=== PATIENT | female | born 1940 | race Caucasian/White ===

== ENCOUNTER 2018-05-13 18:08 | Observation (INO) ==
--- NOTE | 2018-05-13 19:03 | Emergency Department Note ---
Disposition Clinical Impression: UTI (urinary tract infection) Qualifiers: Urinary tract infection type: acute cystitis Hematuria presence: without hematuria Qualified Code(s): N30.00 - Acute cystitis without hematuria Disposition: Admitted As Inpatient Condition: Good Referrals: Jaz Dominguez MD [Primary Care Provider] - Forms: Work/School Release, ED Satisfaction Letter Time of Disposition: 23:07 General Adult HPI - General Chief complaint: ED Altered Mental Status Stated complaint: needs medicines Time Seen by Provider: 05/13/18 18:48 Source: patient, family Mode of arrival: wheelchair Limitations: no limitations Nursing Notes Reviewed: Yes Vital Signs Reviewed: Yes - History of Present Illness HPI Narrative: She is 78 year old woman with pmh significant for dementia, parkinson's, DM who was found outside alone at the [facility] entrance today attempting to take her medicine that was in a pravastatin bottle but had mixed tablets in the bottle. Staff said she appeared confused and was brought to the ED. Her son who is at bedside now states she has been here visiting another son who is a pt here. She arrived with her who left her outside when she did not want to visit her son today. She became upset, anxious, and worried prior to staff finding her. In the ED she has been moaning, anxious, and crying. Her son states she has not taken her meds for a number of days and has had similar episodes like this before when she does not take her meds and gets worried about things. Pt Subjective Complaint: worried Onset (ago): hour(s) Pain Scale: 6 Associated symptoms: Reports: denies other symptoms Treatments Prior to Arrival: none - Related Data Home Medications Medication Instructions Recorded Confirmed Amlodipine Besylate 10 mg PO DAILY 05/13/18 05/13/18 Carbidopa/Levodopa 0.5 tab PO TID 05/13/18 05/13/18 [Carbidopa-Levodopa 25-250 Tab] Citalopram [CeleXA] 20 mg PO DAILY 05/13/18 05/13/18 Furosemide [Lasix] 20 mg PO DAILY 05/13/18 05/13/18 Gabapentin [Neurontin] 300 mg PO BID 05/13/18 05/13/18 Gabapentin [Neurontin] 600 mg PO HS 05/13/18 05/13/18 Glimepiride [Amaryl] 2 mg PO DAILY 05/13/18 05/13/18 Metformin HCl [Metformin HCl] 1,000 mg PO QAM 05/13/18 05/13/18 Metformin HCl [Metformin HCl] 1,500 mg PO HS 05/13/18 05/13/18 Omeprazole [PriLOSEC] 40 mg PO DAILY 05/13/18 05/13/18 Pravastatin Sodium [Pravachol] 40 mg PO HS 05/13/18 05/13/18 Propranolol HCl 60 mg PO DAILY 05/13/18 05/13/18 Tolterodine Tartrate [Tolterodine 4 mg PO DAILY 05/13/18 05/13/18 Tartrate ER] Trazodone HCl 200 mg PO HS 05/13/18 05/13/18 rOPINIRole [Requip] 0.5 mg PO HS 05/13/18 05/13/18 raNITIdine HCl [Zantac] 150 mg PO BID 05/13/18 05/13/18 Allergies Allergy/AdvReac Type Severity Reaction Status Date / Time No Known Allergies Allergy Verified 05/13/18 18:18 All systems ED: reviewed and negative except as stated. Past Medical History - Past Medical History Medical history: Reports: dementia, diabetes Psychiatric history: Reports: other - Social History Smoking Status: Never smoker Smokeless Tobacco Status: No Alcohol use: Reports: none Drug use: Reports: none Physical Exam - General Limitations: other (dementia ) General appearance: alert, anxious, other (tearful, moaning when not being directly spoken to. ) - Head Head exam: atraumatic, normocephalic, normal inspection - Eye Eye exam: Present: normal appearance - ENT ENT exam: mucous membranes moist - Neck Neck exam: Present: normal inspection, trachea midline - Chest Chest inspection: Present: normal inspection, symmetric chest wall rise - Respiratory Respiratory exam: Present: normal lung sounds bilaterally - Cardiovascular Cardiovascular exam: Present: normal rhythm, tachycardia, normal heart sounds, + S1, +S2 - Abdominal Exam Abdominal exam: Present: soft, Non-Tender - Neurological Exam Neurological exam: Present: alert, other (oriented to self but not place, time) - Psychiatric Psychiatric exam: Present: anxious, other (worried, tearful ) - Skin Skin exam: Present: warm, dry, intact, normal color Course Course Narrative: She was found by staff alone attempting to take mixed medications outside of the [facility] entrance earlier today. Son at bedside said she has not taken her medications for a number of days and this has happened before when she gets worried about something and doesn't take her meds. Son also states since his arrival in the room she has improved. He does not know what medications she takes and she does not have a current medication list. She continues to be tearful, anxious and worried when I examined her but has no complaints herself. Will get bmp and UA and give low dose risperidone and lorazepam to calm her down. 2149: She is more calm now. UA with large esterase, 50-100 wbc, large bacteria consistent with UTI. Will give ceftriaxone now and likely admit her in the setting of UTI with acute confusion. 2299: Spoke to hospitalist service who accepted. Vital Signs Temperature 97.7 F 05/13/18 18:18 Pulse Rate 106 05/13/18 18:18 Respiratory Rate 24 05/13/18 18:18 Blood Pressure 173/84 05/13/18 18:18 O2 Sat by Pulse Oximetry 99 05/13/18 18:18 Temperature 97.7 F 05/13/18 18:44 Pulse Rate 99 05/13/18 22:55 Respiratory Rate 12 05/13/18 22:55 Blood Pressure 154/74 05/13/18 22:55 O2 Sat by Pulse Oximetry 94 05/13/18 22:55 Oxygen Delivery Oxygen Delivery Room Air Medical Decision Making - Lab Data Result diagrams: 05/13/18 20:18 Lab Results 05/13/18 05/13/18 Range/Units 20:18 21:19 Sodium 138 (136-145) mEq/L Potassium 4.0 (3.5-5.1) mEq/L Chloride 103 (98-107) mEq/L Carbon Dioxide 19 L (23-29) mEq/L BUN 18 (8-23) mg/dL Creatinine 0.56 L (0.60-1.20) mg/dL Est GFR ( Amer) > 60 (> 60) Est GFR (Non-Af Amer) > 60 (> 60) BUN/Creatinine Ratio 32 H (6-26) Glucose 167 H (70-105) mg/dL Calculated Osmolality 292 (280-300) Calcium 9.9 (8.6-10.3) mg/dL Urine Color Yellow (Yellow) Urine Clarity Cloudy A (Clear) Urine pH 7.0 (5.0-8.0) pH Units Ur Specific [place] 1.007 L (1.010-1.025) Urine Protein Negative (Neg-Trace) mg/dL Urine Glucose (UA) Normal (Normal) mg/dL Urine Ketones Negative (Negative) mg/dL Urine Blood Negative (Negative) Urine Nitrite Negative (Negative) Urine Bilirubin Negative (Negative) Urine Urobilinogen Normal (Normal) mg/dL Ur Leukocyte Esterase Large H (Negative) Urine Microscopic RBC 0-3 (0-3) per hpf Urine Microscopic WBC 50-100 H (0-3) per hpf Ur Squamous Epith Cells Moderate H (None-Few) per lpf Urine Bacteria Many H (None-Few) per hpf Hyaline Casts None Seen (None-Few) per lpf
[2018-05-13] MEDS ORDERED: *HR* LORazepam 1 MG TABLET PO ONE (19:53)
[2018-05-13] MEDS ORDERED: risperiDONE 1 MG TABLET PO ONE (19:53)
[2018-05-13 21:30] LABS: Bilirubin,Urine Negative (Negative); Blood,Urine Negative (Negative); Clarity,Urine Cloudy (Clear); Color,Urine Yellow (Yellow); Glucose,Urine (UA) Normal (Normal); Ketones,Urine Negative (Negative); Leukocyte Esterase,Urine Large (Negative); Nitrite,Urine Negative (Negative); Protein,Urine Negative (Neg-Trace); Specific Gravity,Urine 1.007 (1.010-1.025); Urobilinogen,Urine Normal (Normal)
[2018-05-13 21:31] LABS: Bacteria,Urine Many per hpf (None-Few); Hyaline Casts,Urine None Seen per lpf (None-Few); RBC,Urine 0-3 per hpf (0-3); Squamous Epithelial Cell,Urine Moderate per lpf (None-Few); WBC,Urine 50-100 per hpf (0-3)
[2018-05-13] MEDS ORDERED: cefTRIAXone 1,000 MG in Water for inj. (sterile) 20 ML 10 ML IVP ONE (21:55)
[2018-05-13 22:19] LABS: BUN/Creatinine Ratio 32 (6-26); Blood Urea Nitrogen 18 mg/dL (8-23); Calcium 9.9 mg/dL (8.6-10.3); Carbon Dioxide 19 mEq/L (23-29); Chloride 103 mEq/L (98-107); Glucose 167 mg/dL (70-105); Osmolality,Calculated 292 (280-300); Sodium 138 mEq/L (136-145); eGFR For Non-African Americans > 60 (> 60)
[2018-05-14] MEDS ORDERED: Dextrose Gel 15 GM/37.5 ML TUBE PO PRN ×2 (00:38)
[2018-05-14] MEDS ORDERED: Ringers Solution, Lactated 1,000 ML IVC SCH (00:45)
--- NOTE | 2018-05-14 01:15 | Internal Med History&Physical ---
Date of Encounter: 05/14/18 Time of Encounter: 01:10 Internal Medicine - H&P: HPI Chief complaint: confusion Admitted From: Home Plans for Post Hospital Care: Home History of present illness: Bulk of history obtained from chart review as patient is not overly conversant. She is a 78-year-old woman with a reported history of dementia and Parkinsons disease as well as diabetes who was found outside our hospital earlier today apparently attempting to take her medicine that was in a pravastatin bottle but had mixed tablets in the bottle. It is reported by staff members that she appeared confused and was brought into the ER. Her son who was seen at bedside earlier as per ED physician report states that she was visiting another son who is admitted as a as an inpatient here but upon arrival she did not want to come in and she was left by her outside. She then became upset, anxious and worried prior to staff finding her. In the ER she was apparently moaning and crying and somewhat anxious. As per her son he stated that she had not taken her medications for a number of days and she has had similar episodes prior when she does not takes her medications. She was found clinically and hemodynamically stable. ER documentations that she was tearful, anxious and worried but had no specific complaints. She was given risperidone and lorazepam to calm her down. A UA was obtained which was positive and was started on ceftriaxone with a concern that she may have had an acute confusional state precipitated by UTI. On my assessment she was lying in bed comfortably in no acute distress. When I asked her name she failed to respond until asked about 6 times. When asked about any specific complaints or concerns she says no although she appears somewhat depressed. She denies abdominal pain and dysuria. She denies any headache, fever and chills. She denies chest pain, nausea, vomiting and diarrhea. Past Med Surg Social Fam HX - Past Medical History Medical history: dementia, diabetes Additional medical history: Parkinson's Psychiatric history: depression, other - Past Surgical History Surgical History: non-contributory - Social History Smoking Status: Never smoker Smokeless Tobacco Status: No Alcohol use: none Drug use: none - Family History Son Hx Family Psychosocial Disorders: Yes (Substance abuse) Internal Medicine - H&P: Meds Amlodipine Besylate 10 mg PO DAILY 05/13/18 [History] Carbidopa/Levodopa [Carbidopa-Levodopa 25-250 Tab] 0.5 tab PO TID 05/13/18 [ History] Citalopram [CeleXA] 20 mg PO DAILY 05/13/18 [History] Furosemide [Lasix] 20 mg PO DAILY 05/13/18 [History] Gabapentin [Neurontin] 300 mg PO BID 05/13/18 [History] Gabapentin [Neurontin] 600 mg PO HS 05/13/18 [History] Glimepiride [Amaryl] 2 mg PO DAILY 05/13/18 [History] Metformin HCl [Metformin HCl] 1,000 mg PO QAM 05/13/18 [History] Metformin HCl [Metformin HCl] 1,500 mg PO HS 05/13/18 [History] Omeprazole [PriLOSEC] 40 mg PO DAILY 05/13/18 [History] Pravastatin Sodium [Pravachol] 40 mg PO HS 05/13/18 [History] Propranolol HCl 60 mg PO DAILY 05/13/18 [History] Tolterodine Tartrate [Tolterodine Tartrate ER] 4 mg PO DAILY 05/13/18 [History] Trazodone HCl 200 mg PO HS 05/13/18 [History] rOPINIRole [Requip] 0.5 mg PO HS 05/13/18 [History] raNITIdine HCl [Zantac] 150 mg PO BID 05/13/18 [History] 3 Allergy/AdvReac Type Severity Reaction Status Date / Time No Known Allergies Allergy Verified 05/13/18 18:18 All Systems PM: A 10-system review of systems was performed and is negative for pertinent findings except as documented above in the HPI. - Constitutional Vitals: Temp Pulse Resp BP Pulse Ox 98.3 F 100 16 146/86 92 05/14/18 00:19 05/14/18 00:19 05/14/18 00:19 05/14/18 00:19 05/14/18 00:19 Exam: Vitals: Reviewed General: Well-developed. NAD. Skin: Warm and supple. HEENT: Moist mucous membranes. Mild conjunctivae pallor. Neck: No lymphadenopathy. No JVD. No carotid bruits. No palpable thyroid. Chest: Normal thoracic expansion. Normal breath sounds. Clear to auscultation. Heart: Normal S1 & S2; rhythmic. No rubs or murmurs. Abdomen: Non-distended, soft and non-tender to palpation. Extremities: No clubbing, cyanosis or edema. No calf tenderness. Normal distal pulses. Neurological: No focal deficits apparent. Psych: Flat affect and depressed facial expression. Internal Med - H&P Results - Labs CBC & Chem 7: 05/13/18 20:18 - Assessment and plan (1) Cystitis Current Visit: Yes Status: Acute Assessment and plan: The patient has a positive UA with minimal systemic signs/symptoms of infection. Will get a urine culture and continue ceftriaxone. She can be transitioned to PO to complete a 3 day empiric course. (2) Confusion and disorientation Current Visit: Yes Status: Acute Assessment and plan: May be triggered by lower UTI however we do not know what her baseline is and how episodic this presentation occurs. Will need family to present at bedside for better understanding and if she needs some assistance at home. Will consult SW. (3) Parkinson disease Current Visit: Yes Status: Acute Assessment and plan: dopamine agents to be resumed. (4) Diabetes Current Visit: Yes Status: Chronic Assessment and plan: Will place on ISS and diabetic diet for now. Qualifiers: Diabetes mellitus type: type 2 Diabetes mellitus assisted insulin use: without intermodal owner operator truck driver use Diabetes mellitus complication status: without complication Qualified Code(s): E11.9 - Type 2 diabetes mellitus without complications (5) DVT prophylaxis Current Visit: Yes Status: Acute Assessment and plan: SubQ heparin. - Time Spent With Patient Total time spent is greater than 50% in coordination of care (as documented) at patient's floor/unit and/or counseling patient: Greater than 35 minutes
[2018-05-14 01:18] LABS: Basophils % 0.3 %; Eosinophils # 0.1 K/mcL (0.0-0.6); Eosinophils % 0.6 %; Hematocrit 38.6 % (35.3-44.9); Hemoglobin 12.2 g/dL (11.5-15.4); Immature Granulocytes % 0.1 % (0-4); Lymphocytes # 3.1 K/mcL (0.6-4.6); Lymphocytes % 40.8 %; Mean Corpuscular HGB Conc 31.6 g/dL (31.6-35.5); Mean Corpuscular Hemoglobin 28.6 pg (28.0-33.3); Mean Corpuscular Volume 90.6 fL (83.0-100.0); Mean Platelet Volume 9.9 fL (9.4-12.4); Monocytes # 0.6 K/mcL (0.0-1.3); Monocytes % 7.3 %; Neutrophils # 3.9 K/mcL (1.6-8.9); Platelet Count 232 K/mcL (140-400); Red Blood Count 4.26 M/mcL (3.82-4.97); Red Cell Distribution Width 15.5 % (11.5-14.5); Segmented Neutrophils % 50.9 %
[2018-05-14 01:36] LABS: Alanine Aminotransferase 14 Units/L (7-52); Albumin 4.2 g/dL (3.5-5.7); Albumin/Globulin Ratio 1.3 (1.1-2.2); Alkaline Phosphatase 72 Units/L (34-104); Aspartate Amino Transferase 16 Units/L (13-39); BUN/Creatinine Ratio 32 (6-26); Bilirubin,Total 0.3 mg/dL (0.3-1.0); Blood Urea Nitrogen 15 mg/dL (8-23); Calcium 9.9 mg/dL (8.6-10.3); Carbon Dioxide 25 mEq/L (23-29); Chloride 103 mEq/L (98-107); Globulin 3.2 g/dL (2.4-3.5); Glucose 178 mg/dL (70-105); Osmolality,Calculated 291 (280-300); Potassium 3.7 mEq/L (3.5-5.1); Sodium 138 mEq/L (136-145); Total Protein 7.4 g/dL (6.4-8.9); eGFR For Non-African Americans > 60 (> 60)
[2018-05-14] MEDS: traZODone 50 MG TABLET PO SCH ×2 (03:58→21:32)
[2018-05-14] MEDS: Insulin LISPRO 300 UNITS/3 ML VIAL SQ SCH ×5 (04:07→21:38)
[2018-05-14] MEDS: *HR* Heparin 5,000 UNIT/ML VIAL SQ SCH ×3 (06:25→21:33)
[2018-05-14] MEDS: Carbidopa/Levodopa 25/250 TABLET PO SCH ×3 (08:09→21:33)
[2018-05-14] MEDS: cefTRIAXone 1,000 MG in Water for inj. (sterile) 20 ML 10 ML IVPB SCH (08:10)
[2018-05-14] MEDS: Famotidine 20 MG TABLET PO SCH ×2 (08:10→17:38)
[2018-05-14] MEDS: Tolterodine LA (24 HR) 4 MG CAP.ER.24H PO SCH (08:10)
[2018-05-14] MEDS: amLODIPine 5 MG TABLET PO SCH (08:10)
[2018-05-14] MEDS: Gabapentin 300 MG CAPSULE PO SCH ×3 (08:10→21:33)
[2018-05-14] MEDS: Propranolol LA (24 HR) 60 MG CAP.SA.24H PO SCH (12:20)
[2018-05-14] MEDS ORDERED: *HR* LORazepam 2 MG/ML VIAL IVP ONE (20:25)
[2018-05-14] MEDS: rOPINIRole 0.25 MG TABLET PO SCH (21:32)
[2018-05-15] MEDS: *HR* Heparin 5,000 UNIT/ML VIAL SQ SCH ×3 (05:24→20:40)
[2018-05-15] MEDS: Gabapentin 300 MG CAPSULE PO SCH ×4 (08:44→20:41)
[2018-05-15] MEDS: Insulin LISPRO 300 UNITS/3 ML VIAL SQ SCH ×3 (08:54→18:32)
[2018-05-15] MEDS: cefTRIAXone 1,000 MG in Water for inj. (sterile) 20 ML 10 ML IVPB SCH (10:42)
[2018-05-15] MEDS: amLODIPine 5 MG TABLET PO SCH (10:43)
[2018-05-15] MEDS: Carbidopa/Levodopa 25/250 TABLET PO SCH ×3 (10:43→20:40)
[2018-05-15] MEDS: Tolterodine LA (24 HR) 4 MG CAP.ER.24H PO SCH (10:44)
[2018-05-15] MEDS: Propranolol LA (24 HR) 60 MG CAP.SA.24H PO SCH (10:44)
[2018-05-15] MEDS: Famotidine 20 MG TABLET PO SCH ×2 (10:44→15:18)
[2018-05-15] MEDS: rOPINIRole 0.25 MG TABLET PO SCH (20:40)
[2018-05-15] MEDS: traZODone 50 MG TABLET PO SCH (20:41)
--- NOTE | 2018-05-15 22:44 | Internal Med Progress Note ---
Hospitalist Progress Note - Encounter Date of Encounter: 05/15/18 Time of Encounter: 19:00 - Subjective Interval History: SUBJECTIVE: I found this patient less drowsy today. She was sleeping, when I came to her room. She was happy to talk to me. She knows her first name and last name. Otherwise, she is disoriented. She is not voicing any particular problems. She has no problems with eating/drinking fluids. She has not started any ambulation yet. OBJECTIVE: Skin: Free of rash and discoloration. ENMT: Oral/pharyngeal mucosa is normal in appearance. Eyes: Sclera is white. There is no discharge from eyes. Respiratory: Normal breath sounds; no crackles or wheezes. CV: Heart is regular; no gallop or murmur. GI: Abdomen is soft and not tender. There is no palpable mass or visceromegaly. Neuro: There is no focal deficits. ASSESSMENT AND PLAN: Cystitis. It could be because of her confusion and disorientation. Obviously, she has underlying dementia/Parkinson's disease. We will continue IV Rocephin. We will continue previous treatments for Parkinson's disease. They include Sinemet and Requip. Type 2 diabetes mellitus. Under fair control. We will continue when necessary Humalog. Hypertension. Under control. We will continue amlodipine. DISPOSITION: I will start physical therapy for her. If she is doing okay with ambulation then, we may consider sending her back (home or ECF). - Exam Vitals: Temp Pulse Resp BP Pulse Ox 97.6 F 83 16 123/80 96 05/15/18 20:32 05/15/18 20:32 05/15/18 20:32 05/15/18 20:32 05/15/18 20:32 Exam: xx - Assessment and Plan (1) Cystitis Current Visit: Yes Status: Acute (2) Confusion and disorientation Current Visit: Yes Status: Acute (3) Parkinson disease Current Visit: Yes Status: Acute (4) Diabetes Current Visit: Yes Status: Chronic (5) HTN (hypertension) Current Visit: Yes Status: Acute - Time Spent with Patient Total time spent is greater than 50% in coordination of care (as documented) at patient's floor/unit and/or counseling patient: 25 - 35 minutes Plan of Care Discussed with: patient Internal Medicine: Result - Labs CBC & Chem 7: 05/14/18 01:03 05/14/18 01:03 Consult Discharge Plan - Plan Referrals: Jaz Dominguez MD [Primary Care Provider] - (4) Diabetes Qualifiers: Diabetes mellitus type: type 2 Diabetes mellitus retirement insulin use: without retirement use Diabetes mellitus complication status: without complication Qualified Code(s): E11.9 - Type 2 diabetes mellitus without complications (5) HTN (hypertension) Qualifiers: Hypertension type: essential hypertension Qualified Code(s): I10 - Essential (primary) hypertension
[2018-05-16] MEDS: Insulin LISPRO 300 UNITS/3 ML VIAL SQ SCH ×4 (06:59→16:31)
[2018-05-16] MEDS: *HR* Heparin 5,000 UNIT/ML VIAL SQ SCH ×2 (07:00→16:31)
[2018-05-16] MEDS: Famotidine 20 MG TABLET PO SCH ×2 (07:01→17:48)
[2018-05-16] MEDS: Propranolol LA (24 HR) 60 MG CAP.SA.24H PO SCH (08:29)
[2018-05-16] MEDS: Gabapentin 300 MG CAPSULE PO SCH ×2 (08:30→13:08)
[2018-05-16] MEDS: Tolterodine LA (24 HR) 4 MG CAP.ER.24H PO SCH (08:30)
[2018-05-16] MEDS: Carbidopa/Levodopa 25/250 TABLET PO SCH ×2 (08:31→17:48)
[2018-05-16] MEDS: cefTRIAXone 1,000 MG in Water for inj. (sterile) 20 ML 10 ML IVPB SCH (08:31)
[2018-05-16] MEDS: amLODIPine 5 MG TABLET PO SCH (08:31)
[2018-05-16 11:49] VITALS: BP 158/80
--- NOTE | 2018-05-16 14:53 | Discharge Summary ---
Orders not resulted at time of discharge: Pending orders 05/14/18 01:03 Culture,Blood [BC] Stat Date of Encounter: 05/16/18 Time of Encounter: 14:45 - Discharge Diagnosis (1) Cystitis Priority: Primary Status: Acute (2) Confusion and disorientation Priority: Primary Status: Resolved (3) Parkinson disease Priority: Secondary Status: Chronic (4) Diabetes Priority: Secondary Status: Chronic Qualifiers: Diabetes mellitus type: type 2 Diabetes mellitus detention insulin use: without restaurant hostess use Diabetes mellitus complication status: without complication Qualified Code(s): E11.9 - Type 2 diabetes mellitus without complications (5) HTN (hypertension) Priority: Secondary Status: Chronic Qualifiers: Hypertension type: essential hypertension Qualified Code(s): I10 - Essential (primary) hypertension Hospital course: HOSPITAL COURSE: This 78-year-old woman has had underlying mild/moderate dementia. We admitted her after she developed confusion. We found changes in urine suggesting diagnosis of urinary tract infection. Will put her on IV Rocephin and IV fluids. Her altered mental status subsided by the time of discharge. Her urine culture is growing Klebsiella. It is sensitive to ceftriaxone. CONDITION AT DISCHARGE: The patient feels good. She talked to her when I was in her room. Her feels that her mental status is baseline. The patient is able to ambulate on her own. Skin: Free of rash and discoloration. Respiratory: Normal breath sounds with no crackles and wheezes bilaterally. CV: Heart is regular with no gallop or murmur. GI: Abdomen is flat and soft with no palpable mass or visceromegaly. Neuro exam: There is no focal deficits. Normal speech, swallowing and gait. SEE DISCHARGE ORDERS/MEDICATIONS.. Discharge discussed with: patient, family, nurse - Time Spent with Patient Total time spent providing and/or coordinating discharge services: Greater than 30 minutes (40 minutes..) - Discharge Medications Prescriptions: Cefuroxime PO [Ceftin] 250 mg PO Q12HR 7 Days #14 tablet Home Medications: Amlodipine Besylate 10 mg PO DAILY 05/13/18 [History] Carbidopa/Levodopa [Carbidopa-Levodopa 25-250 Tab] 0.5 tab PO TID 05/13/18 [ History] Citalopram [CeleXA] 20 mg PO DAILY 05/13/18 [History] Furosemide [Lasix] 20 mg PO DAILY 05/13/18 [History] Gabapentin [Neurontin] 300 mg PO BID 05/13/18 [History] Gabapentin [Neurontin] 600 mg PO HS 05/13/18 [History] Glimepiride [Amaryl] 2 mg PO DAILY 05/13/18 [History] Metformin HCl 1,000 mg PO QAM 05/13/18 [History] Metformin HCl 1,500 mg PO HS 05/13/18 [History] Omeprazole [PriLOSEC] 40 mg PO DAILY 05/13/18 [History] Pravastatin Sodium [Pravachol] 40 mg PO HS 05/13/18 [History] Propranolol HCl 60 mg PO DAILY 05/13/18 [History] Tolterodine Tartrate [Tolterodine Tartrate ER] 4 mg PO DAILY 05/13/18 [History] Trazodone HCl 200 mg PO HS 05/13/18 [History] rOPINIRole [Requip] 0.5 mg PO HS 05/13/18 [History] raNITIdine HCl [Zantac] 150 mg PO BID 05/13/18 [History] Cefuroxime PO [Ceftin] 250 mg PO Q12HR 7 Days #14 tablet 05/16/18 [Rx] Allergies/Adverse Reactions: 3 Allergy/AdvReac Type Severity Reaction Status Date / Time No Known Allergies Allergy Verified 05/13/18 18:18 Date of admission: 05/13/18 23:38 Primary care physician: Jaz Dominguez MD Consults: 05/14/18 01:55 Consult to [employer] ([facility]) [CONS] Routine Reason For Exam: Reason for SW Consult: patient with dementia left outside the hospital in a confused state. eval for home assistance. 05/15/18 14:41 Consult to Physical Therapy [CONS] Routine Comment: Evaluate, develop and implement POC Reason for Consult: UTI/DECONDITIONING Does patient have active BEDREST order?: No Is patient medically & hemodynamically stable?: Yes Patient assessed for mobility or mobilized this visit?: No Discharging clinician: Rigo Angeles Anticipated date of discharge: 05/16/18 - Constitutional Vitals: Temp Pulse Resp BP Pulse Ox 97.7 F 88 19 158/80 96 05/16/18 11:48 05/16/18 11:48 05/16/18 11:48 05/16/18 11:48 05/16/18 11:48 General appearance: Present: A&O X 1, pleasant, no acute distress Exam: xx - Patient Status Disposition: Home, Self-Care Condition: Fair Functional capacity at discharge: independent ambulation Overall status at discharge: patient is progressing back to baseline - Discharge Instructions Follow Up With: Jaz Dominguez MD [Primary Care Provider] - 05/29/18 1:30 pm - Diet and Activity Activity: increase activity as tolerated Diet: diabetic diet - VTE Deep Vein Thrombosis/Pulmonary Embolism Present on Admission: No
--- NOTE | 2018-05-16 17:20 | Physician Discharge Referral ---
Home Health/Hosp Referral Info Transfer to: Home Health Attending Provider: Derrek Angeles Provider in Charge Post Discharge: PCP - Diagnosis (1) Cystitis Priority: Primary Status: Acute (2) Confusion and disorientation Priority: Primary Status: Resolved (3) Parkinson disease Priority: Secondary Status: Chronic (4) Diabetes Priority: Secondary Status: Chronic (5) HTN (hypertension) Priority: Secondary Status: Chronic - Respiratory Orders None Smoking Cessation: Smoking cessation has been advised. For more information, call the [place] Tobacco Quit Line at 8-658-JMIO-NOW. - Diet/Nutrition Diet/Nutrition Orders: Regular - Activity Activity Orders: Up ad patsy - Services Needed Following services are medically necessary services: Nursing, Physical Therapy - Transfer Medications Prescriptions: Cefuroxime PO [Ceftin] 250 mg PO Q12HR 7 Days #14 tablet Home Medications: Amlodipine Besylate 10 mg PO DAILY 05/13/18 [History] Carbidopa/Levodopa [Carbidopa-Levodopa 25-250 Tab] 0.5 tab PO TID 05/13/18 [ History] Citalopram [CeleXA] 20 mg PO DAILY 05/13/18 [History] Furosemide [Lasix] 20 mg PO DAILY 05/13/18 [History] Gabapentin [Neurontin] 300 mg PO BID 05/13/18 [History] Gabapentin [Neurontin] 600 mg PO HS 05/13/18 [History] Glimepiride [Amaryl] 2 mg PO DAILY 05/13/18 [History] Metformin HCl 1,000 mg PO QAM 05/13/18 [History] Metformin HCl 1,500 mg PO HS 05/13/18 [History] Omeprazole [PriLOSEC] 40 mg PO DAILY 05/13/18 [History] Pravastatin Sodium [Pravachol] 40 mg PO HS 05/13/18 [History] Propranolol HCl 60 mg PO DAILY 05/13/18 [History] Tolterodine Tartrate [Tolterodine Tartrate ER] 4 mg PO DAILY 05/13/18 [History] Trazodone HCl 200 mg PO HS 05/13/18 [History] rOPINIRole [Requip] 0.5 mg PO HS 05/13/18 [History] raNITIdine HCl [Zantac] 150 mg PO BID 05/13/18 [History] Cefuroxime PO [Ceftin] 250 mg PO Q12HR 7 Days #14 tablet 05/16/18 [Rx] Allergies/Adverse Reactions: 3 Allergy/AdvReac Type Severity Reaction Status Date / Time No Known Allergies Allergy Verified 05/13/18 18:18 Certification: Further, I certify that my clinical findings support that this patient is homebound (i.e. absences from home require considerable and taxing effort and are for medical reasons or [facility] services or infrequently or short duration when for other reasons) because: Homebound Reason: Patient requires assistance of a person or device to safely leave home Attestation: My signature below is to certify that this patient is under my care and that I, or nurse practitioner, or a physician's public aid eligibility assistant working with me, has a face-to -face encounter with this patient.
--- NOTE | 2018-05-20 15:28 | Emergency Department Note ---
Disposition Clinical Impression: UTI (urinary tract infection) Qualifiers: Urinary tract infection type: acute cystitis Hematuria presence: without hematuria Qualified Code(s): N30.00 - Acute cystitis without hematuria Disposition: Admitted As Inpatient Condition: Fair General Adult HPI - General Chief complaint: ED Altered Mental Status Stated complaint: needs medicines Time Seen by Provider: 05/13/18 18:48 Source: patient, family Mode of arrival: wheelchair Limitations: other (dementia ) - History of Present Illness Pain Scale: 0 Associated symptoms: Reports: denies other symptoms Treatments Prior to Arrival: none - Related Data Home Medications Medication Instructions Recorded Confirmed Amlodipine Besylate 10 mg PO DAILY 05/13/18 05/13/18 Carbidopa/Levodopa 0.5 tab PO TID 05/13/18 05/13/18 [Carbidopa-Levodopa 25-250 Tab] Citalopram [CeleXA] 20 mg PO DAILY 05/13/18 05/13/18 Furosemide [Lasix] 20 mg PO DAILY 05/13/18 05/13/18 Gabapentin [Neurontin] 300 mg PO BID 05/13/18 05/13/18 Gabapentin [Neurontin] 600 mg PO HS 05/13/18 05/13/18 Glimepiride [Amaryl] 2 mg PO DAILY 05/13/18 05/13/18 Metformin HCl 1,000 mg PO QA 05/13/18 05/13/18 Metformin HCl 1,500 mg PO HS 05/13/18 05/13/18 Omeprazole [PriLOSEC] 40 mg PO DAILY 05/13/18 05/13/18 Pravastatin Sodium [Pravachol] 40 mg PO HS 05/13/18 05/13/18 Propranolol HCl 60 mg PO DAILY 05/13/18 05/13/18 Tolterodine Tartrate [Tolterodine 4 mg PO DAILY 05/13/18 05/13/18 Tartrate ER] Trazodone HCl 200 mg PO HS 05/13/18 05/13/18 rOPINIRole [Requip] 0.5 mg PO HS 05/13/18 05/13/18 raNITIdine HCl [Zantac] 150 mg PO BID 05/13/18 05/13/18 Previous Rx's Medication Instructions Recorded Cefuroxime PO [Ceftin] 250 mg PO Q12HR 7 Days #14 tablet 05/16/18 Allergies Allergy/AdvReac Type Severity Reaction Status Date / Time No Known Allergies Allergy Verified 05/13/18 18:18 Past Medical History - Past Medical History Medical history: Reports: dementia, diabetes Surgical history: Reports: non-contributory Psychiatric history: Reports: depression, other - Social History Smoking Status: Never smoker Smokeless Tobacco Status: No Alcohol use: Reports: none Drug use: Reports: none Physical Exam - General Limitations: other (dementia ) General appearance: alert, anxious, other (tearful, moaning when not being directly spoken to. ) Course Vital Signs Temperature 97.7 F 05/13/18 18:18 Pulse Rate 106 05/13/18 18:18 Respiratory Rate 24 05/13/18 18:18 Blood Pressure 173/84 05/13/18 18:18 O2 Sat by Pulse Oximetry 99 05/13/18 18:18 Temperature 97.7 F 05/16/18 11:48 Pulse Rate 88 05/16/18 11:48 Respiratory Rate 19 05/16/18 11:48 Blood Pressure 158/80 05/16/18 11:48 O2 Sat by Pulse Oximetry 96 05/16/18 11:48 Oxygen Delivery Oxygen Delivery Room Air Medical Decision Making - Lab Data Result diagrams: 05/14/18 01:03 05/14/18 01:03 Lab Results 05/13/18 05/13/18 05/13/18 Range/Units 18:41 20:18 21:19 Sodium 138 (136-145) mEq/L Potassium 4.0 (3.5-5.1) mEq/L Chloride 103 (98-107) mEq/L Carbon Dioxide 19 L (23-29) mEq/L BUN 18 (8-23) mg/dL Creatinine 0.56 L (0.60-1.20) mg/dL Est GFR ( Amer) > 60 (> 60) Est GFR (Non-Af Amer) > 60 (> 60) BUN/Creatinine Ratio 32 H (6-26) Glucose 167 H (70-105) mg/dL POC Glucose 132 H (70-99) mg/dL Calculated Osmolality 292 (280-300) Calcium 9.9 (8.6-10.3) mg/dL Urine Color Yellow (Yellow) Urine Clarity Cloudy A (Clear) Urine pH 7.0 (5.0-8.0) pH Units Ur Specific [place] 1.007 L (1.010-1.025) Urine Protein Negative (Neg-Trace) mg/dL Urine Glucose (UA) Normal (Normal) mg/dL Urine Ketones Negative (Negative) mg/dL Urine Blood Negative (Negative) Urine Nitrite Negative (Negative) Urine Bilirubin Negative (Negative) Urine Urobilinogen Normal (Normal) mg/dL Ur Leukocyte Esterase Large H (Negative) Urine Microscopic RBC 0-3 (0-3) per hpf Urine Microscopic WBC 50-100 H (0-3) per hpf Ur Squamous Epith Cells Moderate H (None-Few) per lpf Urine Bacteria Many H (None-Few) per hpf Hyaline Casts None Seen (None-Few) per lpf Attestation Statement - Attestation Attestation: I examined this patient and my medical decision-making was reviewed with the Resident Physician. I agree with the documented findings, disposition and treatment plan as described.
== END 2018-05-16 18:04 | disposition home or self-care (01) ==
LOC: EMEROOARM 18:08 → 2ANU 18:08 → EMEROOARM 19:30 → 2ANU 19:30 → SUATTDRO 23:38 → 2ANU 05-14 00:11
PROVIDERS: ADMIT Internal Medicine; ATTEND Internal Medicine

== ENCOUNTER 2018-06-29 17:04 | Inpatient (IN) ==
--- NOTE | 2018-06-29 17:13 | Emergency Department Note ---
Disposition Clinical Impression: CODY (acute kidney injury), Dehydration Disposition: Admitted As Inpatient Condition: Fair General Adult HPI - General Stated complaint: Weak Time Seen by Provider: 06/29/18 17:06 - Related Data Home Medications Medication Instructions Recorded Confirmed RX: Amlodipine Besylate 10 mg PO DAILY 05/13/18 05/13/18 RX: Carbidopa/Levodopa 0.5 tab PO TID 05/13/18 05/13/18 [Carbidopa-Levodopa 25-250 Tab] RX: Citalopram [CeleXA] 20 mg PO DAILY 05/13/18 05/13/18 RX: Furosemide [Lasix] 20 mg PO DAILY 05/13/18 05/13/18 RX: Gabapentin [Neurontin] 300 mg PO BID 05/13/18 05/13/18 RX: Gabapentin [Neurontin] 600 mg PO HS 05/13/18 05/13/18 RX: Glimepiride [Amaryl] 2 mg PO DAILY 05/13/18 05/13/18 RX: Metformin HCl 1,000 mg PO [facility] 05/13/18 05/13/18 RX: Metformin HCl 1,500 mg PO HS 05/13/18 05/13/18 RX: Omeprazole [PriLOSEC] 40 mg PO DAILY 05/13/18 05/13/18 RX: Pravastatin Sodium [Pravachol] 40 mg PO HS 05/13/18 05/13/18 RX: Propranolol HCl 60 mg PO DAILY 05/13/18 05/13/18 RX: Tolterodine Tartrate 4 mg PO DAILY 05/13/18 05/13/18 [Tolterodine Tartrate ER] RX: Trazodone HCl 200 mg PO HS 05/13/18 05/13/18 RX: rOPINIRole [Requip] 0.5 mg PO HS 05/13/18 05/13/18 RX: raNITIdine HCl [Zantac] 150 mg PO BID 05/13/18 05/13/18 Previous Rx's Medication Instructions Recorded Cefuroxime PO [Ceftin] 250 mg PO Q12HR 7 Days #14 tablet 05/16/18 Allergies Allergy/AdvReac Type Severity Reaction Status Date / Time No Known Allergies Allergy Verified 05/13/18 18:18 Past Medical History - Past Medical History Medical history: Reports: dementia, diabetes Surgical history: Reports: non-contributory Psychiatric history: Reports: depression, other - Social History Smoking Status: Never smoker Smokeless Tobacco Status: No Alcohol use: Reports: none Drug use: Reports: none Course Vital Signs Temperature 95 F L 06/29/18 17:31 Pulse Rate 58 06/29/18 17:31 Respiratory Rate 18 06/29/18 17:31 Blood Pressure 90/53 06/29/18 17:31 O2 Sat by Pulse Oximetry 98 06/29/18 17:31 Temperature 97.5 F L 06/29/18 21:15 Pulse Rate 68 06/29/18 21:15 Respiratory Rate 17 06/29/18 21:15 Blood Pressure 82/46 06/29/18 21:15 O2 Sat by Pulse Oximetry 99 06/29/18 21:15 Oxygen Delivery Oxygen Delivery Room Air Medical Decision Making - Lab Data Result diagrams: 06/29/18 18:05 06/29/18 19:00 Lab Results 06/29/18 06/29/18 06/29/18 Range/Units 18:05 18:05 18:05 WBC 13.6 H (4.3-11.1) K/mcL RBC 5.46 H (3.82-4.97) M/mcL Hgb 15.6 H (11.5-15.4) g/dL Hct 49.1 H (35.3-44.9) % MCV 89.9 (83.0-100.0) fL MCH 28.6 (28.0-33.3) pg MCHC 31.8 (31.6-35.5) g/dL RDW 14.8 H (11.5-14.5) % Plt Count 261 (140-400) K/mcL MPV 11.4 (9.4-12.4) fL Immature Gran % 0.4 (0-4) % Seg Neutrophils % 71.6 % Lymphocytes % 20.8 % Monocytes % 6.6 % Eosinophils % 0.5 % Basophils % 0.1 % Neutrophils # 9.7 H (1.6-8.9) K/mcL Lymphocytes # 2.8 (0.6-4.6) K/mcL Monocytes # 0.9 (0.0-1.3) K/mcL Eosinophils # 0.1 (0.0-0.6) K/mcL Basophils # 0.0 (0.0-0.2) K/mcL Sodium Cancelled Potassium Cancelled Chloride Cancelled Carbon Dioxide Cancelled BUN Cancelled Creatinine Cancelled Est GFR ( Amer) Cancelled Est GFR (Non-Af Amer) Cancelled BUN/Creatinine Ratio Cancelled Glucose Cancelled Calculated Osmolality Cancelled Lactic Acid 2.8 H (0.5-2.2) mmol/L Calcium Cancelled Magnesium Cancelled Total Bilirubin Cancelled AST Cancelled ALT Cancelled Alkaline Phosphatase Cancelled Troponin I 0.03 (< 0.04) ng/mL Serum Total Protein Cancelled Albumin Cancelled Globulin Cancelled Albumin/Globulin Ratio Cancelled Lipase Cancelled TSH 2.558 (0.340-5.600) mcIU/mL Specimen Rejected 06/29/18 06/29/18 Range/Units 18:05 19:00 WBC (4.3-11.1) K/mcL RBC (3.82-4.97) M/mcL Hgb (11.5-15.4) g/dL Hct (35.3-44.9) % MCV (83.0-100.0) fL MCH (28.0-33.3) pg MCHC (31.6-35.5) g/dL RDW (11.5-14.5) % Plt Count (140-400) K/mcL MPV (9.4-12.4) fL Immature Gran % (0-4) % Seg Neutrophils % % Lymphocytes % % Monocytes % % Eosinophils % % Basophils % % Neutrophils # (1.6-8.9) K/mcL Lymphocytes # (0.6-4.6) K/mcL Monocytes # (0.0-1.3) K/mcL Eosinophils # (0.0-0.6) K/mcL Basophils # (0.0-0.2) K/mcL Sodium 138 Potassium 4.4 Chloride 107 Carbon Dioxide 16 L BUN 56 H Creatinine 4.13 H Est GFR ( Amer) 13 L Est GFR (Non-Af Amer) 10 L BUN/Creatinine Ratio 14 Glucose 121 H Calculated Osmolality 303 H Lactic Acid (0.5-2.2) mmol/L Calcium 8.8 Magnesium 1.2 L Total Bilirubin 0.4 AST 19 ALT 15 Alkaline Phosphatase 67 Troponin I (< 0.04) ng/mL Serum Total Protein 6.2 L Albumin 3.3 L Globulin 2.9 Albumin/Globulin Ratio 1.1 Lipase 109 H TSH (0.340-5.600) mcIU/mL Specimen Rejected Hemolyzed Critical Care Time Critical Care Time: Yes Total Critical Care Time: 30 Attestation: The high probability of a clinically significant, sudden or life threatening deterioration of the [] system(s) required my full and direct attention, intervention and personal management. The aggregate critical care time was [] minutes. This time is in addition to time spent performing reported procedures but includes the following: [] Data Review and interpretation [] Patient assessment and monitoring of vital signs [] Documentation [] Medication orders and management Attestation Statement - Attestation Attestation: I examined this patient and my medical decision-making was reviewed with the Resident Physician. I agree with the documented findings, disposition and treatment plan as described except to the extent set forth below. [id number] time provided Patient arrives by EMS from home. Information obtained from the granddaughter. The patient has been progressively weak with an inability for her to care for herself. Slightly exceeded the granddaughter's ability to care for her. She was recently admitted for similar symptoms and then placed at a short-term rehabilitation facility but was then discharged due to insurance issues. The patient appears in no acute distress upon arrival. Home medication list reviewed by me 17:30: The resident physician was concerned lower abdominal tenderness elicited upon his exam. I did personally examine the patient and was unable to repr oduce any focal tenderness.
--- NOTE | 2018-06-29 17:19 | Emergency Department Note ---
Disposition Clinical Impression: CODY (acute kidney injury), Dehydration Disposition: Admitted As Inpatient Condition: Fair Referrals: Jaz Dominguez MD [Primary Care Provider] - General Adult HPI - General Stated complaint: Weak Time Seen by Provider: 06/29/18 17:06 Nursing Notes Reviewed: Yes Vital Signs Reviewed: Yes - History of Present Illness HPI Narrative: 78-year-old female presents emergency department with concern for generalized weakness, decreased appetite, inability to ambulate. Reports that patient was recently admitted and discharged to an extended care facility where her insurance lapsed after 20 days of treatment in which family states that she did not get any assistance from the facility in regards to physical rehabilitation. Reports that today, she had an episode of vomiting or patient looked pale. Reporting that patient is slightly altered from her baseline. - Related Data Home Medications Medication Instructions Recorded Confirmed Amlodipine Besylate 10 mg PO DAILY 05/13/18 05/13/18 Carbidopa/Levodopa 0.5 tab PO TID 05/13/18 05/13/18 [Carbidopa-Levodopa 25-250 Tab] Citalopram [CeleXA] 20 mg PO DAILY 05/13/18 05/13/18 Furosemide [Lasix] 20 mg PO DAILY 05/13/18 05/13/18 Gabapentin [Neurontin] 300 mg PO BID 05/13/18 05/13/18 Gabapentin [Neurontin] 600 mg PO HS 05/13/18 05/13/18 Glimepiride [Amaryl] 2 mg PO DAILY 05/13/18 05/13/18 Metformin HCl 1,000 mg PO QAM 05/13/18 05/13/18 Metformin HCl 1,500 mg PO HS 05/13/18 05/13/18 Omeprazole [PriLOSEC] 40 mg PO DAILY 05/13/18 05/13/18 Pravastatin Sodium [Pravachol] 40 mg PO HS 05/13/18 05/13/18 Propranolol HCl 60 mg PO DAILY 05/13/18 05/13/18 Tolterodine Tartrate [Tolterodine 4 mg PO DAILY 05/13/18 05/13/18 Tartrate ER] Trazodone HCl 200 mg PO HS 05/13/18 05/13/18 rOPINIRole [Requip] 0.5 mg PO HS 05/13/18 05/13/18 raNITIdine HCl [Zantac] 150 mg PO BID 05/13/18 05/13/18 Previous Rx's Medication Instructions Recorded Cefuroxime PO [Ceftin] 250 mg PO Q12HR 7 Days #14 tablet 05/16/18 Allergies Allergy/AdvReac Type Severity Reaction Status Date / Time No Known Allergies Allergy Verified 05/13/18 18:18 All systems ED: reviewed and negative except as stated. Review of Systems: As Per HPI Limitations: ROS unobtainable due to patients medical condition (Altered mental status) Past Medical History - Past Medical History Medical history: Reports: dementia, diabetes Surgical history: Reports: non-contributory Psychiatric history: Reports: depression, other - Social History Smoking Status: Never smoker Smokeless Tobacco Status: No Alcohol use: Reports: none Drug use: Reports: none Physical Exam - General Limitations: no limitations - Head Head exam: atraumatic, normocephalic - Eye Eye exam: Present: EOMI - ENT ENT exam: mucous membranes dry - Neck Neck exam: Present: trachea midline - Chest Chest inspection: Present: symmetric chest wall rise - Respiratory Respiratory exam: Present: normal lung sounds bilaterally. Absent: respiratory distress, accessory muscle use - Cardiovascular Cardiovascular exam: Present: normal rhythm, bradycardia - Abdominal Exam Abdominal exam: Present: tenderness. Absent: distention, guarding, rebound, rigidity Abdominal tenderness: Present: diffuse, mild - Extremities Exam Extremities exam: Present: normal capillary refill - Back Exam Back exam: Present: full ROM - Neurological Exam Neurological exam: Present: other (Patient not responding to questions. Does obey commands.) - Skin Skin exam: Present: other (Cool to the touch) Course Vital Signs Temperature 95 F L 06/29/18 17:31 Pulse Rate 58 06/29/18 17:31 Respiratory Rate 18 06/29/18 17:31 Blood Pressure 90/53 06/29/18 17:31 O2 Sat by Pulse Oximetry 98 06/29/18 17:31 Temperature 95 F L 06/29/18 17:31 Pulse Rate 58 06/29/18 17:31 Respiratory Rate 18 06/29/18 17:31 Blood Pressure 90/53 06/29/18 17:31 O2 Sat by Pulse Oximetry 98 06/29/18 17:31 Oxygen Delivery Oxygen Delivery Room Air Medical Decision Making - MDM Narrative Medical decision making narrative: 78-year-old female presents emergency Department concern for altered mental status, generalized weakness, vomiting. Patient does have baseline dementia which she is taking medications for. On physical exam, patient bradycardic, blood pressure soft, unable to obtain neurologic exam due to patient's mental status. She did however, have abdominal tenderness on physical exam. We will obtain CT of head, CT abdomen and pelvis, chest x-ray, urinalysis, other labs. Patient was initially hypothermic. We address this by placing Bear hugger. Patient temperature was appropriately. Lactic acid was mildly elevated. We have obtained blood cultures. No source of infection at this time. All imaging that was obtained did not Reveal any evidence of acute abnormality. Patient does have a creatinine of 4.13. This is new from previous labs. Pota ssium is 4.4. Patient has been provided 2 L of normal saline here in the emergency department. We have started her on 125 mL of normal saline maintenance. I have discussed the findings with family. They agreed for admission. Patient is stable and not in any acute distress at time of admission. Blood pressures remain soft, however, patient appears very dry, she is also on beta blockers. We are providing fluid administration to address this. Do not think glucagon is necessary at this time. Patient admitted to the hospitalist, Dr. Block. Chest X-Ray 06/29/18 17:11 IMPRESSION: No acute process. Stable appearing left base most likely representing scarring or atelectasis D/ / Ezra Solis MD / Ezra Solis MD Interpreting Provider: Ezra Solis MD Abdomen/Pelvis CT 06/29/18 17:19 IMPRESSION: 1. No acute findings identified in the abdomen and pelvis. D/ / Adam Saravia MD / Adam Saravia MD Interpreting Provider: Adam Saravia MD Head CT 06/29/18 17:19 IMPRESSION: No acute intracranial abnormality. Findings most suggestive of chronic microvascular ischemic changes and global cerebral atrophy similar to previous exam. D/ / Daniel Russ MD / Daniel Russ MD Interpreting Provider: Daniel Russ MD Vital Signs Temperature 95 F L 06/29/18 17:31 Pulse Rate 58 06/29/18 17:31 Respiratory Rate 18 06/29/18 17:31 Blood Pressure 90/53 06/29/18 17:31 O2 Sat by Pulse Oximetry 98 06/29/18 17:31 Temperature 95 F L 06/29/18 17:31 Pulse Rate 58 06/29/18 17:31 Respiratory Rate 18 06/29/18 17:31 Blood Pressure 90/53 06/29/18 17:31 O2 Sat by Pulse Oximetry 98 06/29/18 17:31 Oxygen Delivery Oxygen Delivery Room Air - Lab Data Result diagrams: 06/29/18 18:05 06/29/18 19:00 Lab Results 06/29/18 06/29/18 06/29/18 Range/Units 18:05 18:05 18:05 WBC 13.6 H (4.3-11.1) K/mcL RBC 5.46 H (3.82-4.97) M/mcL Hgb 15.6 H (11.5-15.4) g/dL Hct 49.1 H (35.3-44.9) % MCV 89.9 (83.0-100.0) fL MCH 28.6 (28.0-33.3) pg MCHC 31.8 (31.6-35.5) g/dL RDW 14.8 H (11.5-14.5) % Plt Count 261 (140-400) K/mcL MPV 11.4 (9.4-12.4) fL Immature Gran % 0.4 (0-4) % Seg Neutrophils % 71.6 % Lymphocytes % 20.8 % Monocytes % 6.6 % Eosinophils % 0.5 % Basophils % 0.1 % Neutrophils # 9.7 H (1.6-8.9) K/mcL Lymphocytes # 2.8 (0.6-4.6) K/mcL Monocytes # 0.9 (0.0-1.3) K/mcL Eosinophils # 0.1 (0.0-0.6) K/mcL Basophils # 0.0 (0.0-0.2) K/mcL Sodium Cancelled Potassium Cancelled Chloride Cancelled Carbon Dioxide Cancelled BUN Cancelled Creatinine Cancelled Est GFR ( Amer) Cancelled Est GFR (Non-Af Amer) Cancelled BUN/Creatinine Ratio Cancelled Glucose Cancelled Calculated Osmolality Cancelled Lactic Acid 2.8 H (0.5-2.2) mmol/L Calcium Cancelled Magnesium Cancelled Total Bilirubin Cancelled AST Cancelled ALT Cancelled Alkaline Phosphatase Cancelled Troponin I 0.03 (< 0.04) ng/mL Serum Total Protein Cancelled Albumin Cancelled Globulin Cancelled Albumin/Globulin Ratio Cancelled Lipase Cancelled TSH 2.558 (0.340-5.600) mcIU/mL Specimen Rejected 06/29/18 06/29/18 Range/Units 18:05 19:00 WBC (4.3-11.1) K/mcL RBC (3.82-4.97) M/mcL Hgb (11.5-15.4) g/dL Hct (35.3-44.9) % MCV (83.0-100.0) fL MCH (28.0-33.3) pg MCHC (31.6-35.5) g/dL RDW (11.5-14.5) % Plt Count (140-400) K/mcL MPV (9.4-12.4) fL Immature Gran % (0-4) % Seg Neutrophils % % Lymphocytes % % Monocytes % % Eosinophils % % Basophils % % Neutrophils # (1.6-8.9) K/mcL Lymphocytes # (0.6-4.6) K/mcL Monocytes # (0.0-1.3) K/mcL Eosinophils # (0.0-0.6) K/mcL Basophils # (0.0-0.2) K/mcL Sodium 138 Potassium 4.4 Chloride 107 Carbon Dioxide 16 L BUN 56 H Creatinine 4.13 H Est GFR ( Amer) 13 L Est GFR (Non-Af Amer) 10 L BUN/Creatinine Ratio 14 Glucose 121 H Calculated Osmolality 303 H Lactic Acid (0.5-2.2) mmol/L Calcium 8.8 Magnesium 1.2 L Total Bilirubin 0.4 AST 19 ALT 15 Alkaline Phosphatase 67 Troponin I (< 0.04) ng/mL Serum Total Protein 6.2 L Albumin 3.3 L Globulin 2.9 Albumin/Globulin Ratio 1.1 Lipase 109 H TSH (0.340-5.600) mcIU/mL Specimen Rejected Hemolyzed - EKG Data EKG #1 EKG attestation: Yes I reviewed and interpreted this EKG. EKG results narrative: Heart rate 56 beats for minute, CO interval 103 ms, QRS duration 125 ms, QT 488 ms, normal axis. Sinus bradycardia with a ventricular rate of 56 beats for minute. Shortened CO interval. Intraventricular conduction delay and is unchanged from previous EKG. No ischemic ST changes.
[2018-06-29] MEDS ORDERED: 0.9 % Sodium Chloride 1,000 ML IVC ONE ×2 (17:22→19:04)
[2018-06-29 18:19] LABS: Basophils % 0.1 %; Eosinophils # 0.1 K/mcL (0.0-0.6); Eosinophils % 0.5 %; Hematocrit 49.1 % (35.3-44.9); Hemoglobin 15.6 g/dL (11.5-15.4); Immature Granulocytes % 0.4 % (0-4); Lymphocytes # 2.8 K/mcL (0.6-4.6); Lymphocytes % 20.8 %; Mean Corpuscular HGB Conc 31.8 g/dL (31.6-35.5); Mean Corpuscular Hemoglobin 28.6 pg (28.0-33.3); Mean Corpuscular Volume 89.9 fL (83.0-100.0); Mean Platelet Volume 11.4 fL (9.4-12.4); Monocytes # 0.9 K/mcL (0.0-1.3); Monocytes % 6.6 %; Neutrophils # 9.7 K/mcL (1.6-8.9); Platelet Count 261 K/mcL (140-400); Red Blood Count 5.46 M/mcL (3.82-4.97); Red Cell Distribution Width 14.8 % (11.5-14.5); Segmented Neutrophils % 71.6 %
[2018-06-29 19:12] LABS: Troponin I 0.03 ng/mL (< 0.04)
[2018-06-29 19:26] LABS: Thyroid Stimulating Hormone 2.558 mcIU/mL (0.340-5.600)
[2018-06-29 19:27] LABS: Albumin 3.3 g/dL (3.5-5.7); Albumin/Globulin Ratio 1.1 (1.1-2.2); Bilirubin,Total 0.4 mg/dL (0.3-1.0); Calcium 8.8 mg/dL (8.6-10.3); Globulin 2.9 g/dL (2.4-3.5); Magnesium 1.2 mg/dL (1.6-2.6); Potassium 4.4 mEq/L (3.5-5.1); Total Protein 6.2 g/dL (6.4-8.9)
[2018-06-29] MEDS ORDERED: 0.9 % Sodium Chloride 1,000 ML IVC STA (20:01)
--- NOTE | 2018-06-29 20:40 | Internal Med History&Physical ---
<Ezra Nazario - Last Filed: 06/29/18 22:22> Date of Encounter: 06/29/18 Time of Encounter: 21:30 Internal Medicine - H&P: HPI Chief complaint: Weakness and AMS Admitted From: Emergency Dept Plans for Post Hospital Care: Transfer [facility] History of present illness: Ms. Vega is a 78 year old female with history of diabetes mellitus, dementia, parkinsonism who presents to the hospital for weakness, decreased appetite and altered mental status. The patient was recently admitted to [facility] for Klebsiella UTI with sepsis and was discharged to a SNF on 05/16/18 where she stayed for rehabilitation for approximately 20 days however she apparently lost her insurance coverage and was discharged from that facility. At the time of examination, the patient is unable to provide any of her history, nor is she able to really give a good review of systems so much of her history is retrieved from both her over the phone as well as previous caregivers. According to family members, the patient was doing better to an extent, however today he seemed to have a substantial drop in her mental status and generally did not appear well. She had no specific complaints, however they were concerns they brought her to the emergency room. According to both the patient and her family she apparently has had a decreased appetite recently, and has just had no interest in eating food. In the emergency room she was found to have hyperthermia with a temperature of 95 degrees Fahrenheit, as well as bradycardia, hypotension. She was found to be profoundly hypovolemic with an CODY and a serum creatinine of 4.13, baseline 0.6. Additionally the patient was on a lactic acid 2.8, magnesium 1.2. Blood pressure 84/41. She is admitted to medicine for further workup. Patient is unable to provide family history due to mental status. Past Med Surg Social Fam HX - Past Medical History Medical history: dementia, diabetes Additional medical history: Parkinson's Psychiatric history: depression, other - Past Surgical History Surgical History: non-contributory - Social History Smoking Status: Never smoker Smokeless Tobacco Status: No Alcohol use: none Drug use: none Internal Medicine - H&P: Meds RX: Amlodipine Besylate 10 mg PO DAILY 05/13/18 [History] RX: Carbidopa/Levodopa [Carbidopa-Levodopa 25-250 Tab] 0.5 tab PO TID 05/13/18 [History] RX: Citalopram [CeleXA] 20 mg PO DAILY 05/13/18 [History] RX: Furosemide [Lasix] 20 mg PO DAILY 05/13/18 [History] RX: Gabapentin [Neurontin] 300 mg PO BID 05/13/18 [History] RX: Gabapentin [Neurontin] 600 mg PO HS 05/13/18 [History] RX: Glimepiride [Amaryl] 2 mg PO DAILY 05/13/18 [History] RX: Metformin HCl 1,000 mg PO QAM 05/13/18 [History] RX: Metformin HCl 1,500 mg PO HS 05/13/18 [History] RX: Omeprazole [PriLOSEC] 40 mg PO DAILY 05/13/18 [History] RX: Pravastatin Sodium [Pravachol] 40 mg PO HS 05/13/18 [History] RX: Propranolol HCl 60 mg PO DAILY 05/13/18 [History] RX: Tolterodine Tartrate [Tolterodine Tartrate ER] 4 mg PO DAILY 05/13/18 [History] RX: Trazodone HCl 200 mg PO HS 05/13/18 [History] RX: rOPINIRole [Requip] 0.5 mg PO HS 05/13/18 [History] RX: raNITIdine HCl [Zantac] 150 mg PO BID 05/13/18 [History] Cefuroxime PO [Ceftin] 250 mg PO Q12HR 7 Days #14 tablet 05/16/18 [Rx] Allergy/AdvReac Type Severity Reaction Status Date / Time No Known Allergies Allergy Verified 05/13/18 18:18 ROS unobtainable: due to mental status All Systems PM: A 10-system review of systems was performed and is negative for pertinent findings except as documented above in the HPI. - Constitutional Vitals: Temp Pulse Resp BP Pulse Ox 97.4 F L 56 16 84/41 99 06/29/18 20:14 06/29/18 20:00 06/29/18 20:00 06/29/18 20:00 06/29/18 20:00 Exam: Gen: Vitals noted. No acute distress. Eyes: anicteric sclerae, moist conjunctivae; no lid-lag; Pupils equal and reactive to light HENT: Atraumatic; oropharynx clear with moist mucous membranes and no mucosal ulcerations; normal hard and soft palate Neck: Trachea midline; supple, no thyromegaly or lymphadenopathy Cardiac: RRR but slow, no murmur, +S1/S2 Pulmonary: CTA bilaterally, no wheezes, rales or rhonchi, equal chest expansion Abdomen: soft, nontender, no guarding. No masses or hepatosplenomegaly MSK: ROM intact, no joint swelling noted Extremities: Trace BLE edema, nontender calf, no cyanosis or clubbing Skin: Cold to touch, somewhat dry appearing; no rash, ulcers or subcutaneous nodules Neuro: moves all extremities, no focal deficits. Psych: Appropriate mood and behavior. A&Ox3 but not oriented to context Internal Med - H&P Results - Labs CBC & Chem 7: 06/29/18 18:05 06/29/18 19:00 Labs: Short CBC 06/29/18 Range/Units 18:05 WBC 13.6 H (4.3-11.1) K/mcL Hgb 15.6 H (11.5-15.4) g/dL Hct 49.1 H (35.3-44.9) % Plt Count 261 (140-400) K/mcL Neutrophils # 9.7 H (1.6-8.9) K/mcL BMP 06/29/18 06/29/18 18:05 19:00 Sodium Cancelled 138 Potassium Cancelled 4.4 Chloride Cancelled 107 Carbon Dioxide Cancelled 16 L BUN Cancelled 56 H Creatinine Cancelled 4.13 H Glucose Cancelled 121 H Calcium Cancelled 8.8 Cardiac Enzymes 06/29/18 Range/Units 18:05 Troponin I 0.03 (< 0.04) ng/mL Liver Function 06/29/18 06/29/18 Range/Units 18:05 19:00 Total Bilirubin Cancelled 0.4 AST Cancelled 19 ALT Cancelled 15 Alkaline Phosphatase Cancelled 67 Albumin Cancelled 3.3 L - Impressions ITS Impressions Chest X-Ray 06/29/18 17:11 IMPRESSION: No acute process. Stable appearing left base most likely representing scarring or atelectasis D/ / Ezra Solis MD / Ezra Solis MD Interpreting Provider: Ezra Solis MD Abdomen/Pelvis CT 06/29/18 17:19 IMPRESSION: 1. No acute findings identified in the abdomen and pelvis. D/ / Adam Saravia MD / Adam Saravia MD Interpreting Provider: Adam Saravia MD Head CT 06/29/18 17:19 IMPRESSION: No acute intracranial abnormality. Findings most suggestive of chronic microvascular ischemic changes and global cerebral atrophy similar to previous exam. D/ / Daniel Russ MD / Daniel Russ MD Interpreting Provider: Daniel Russ MD - Assessment and plan (1) Dehydration Current Visit: Yes Status: Acute Assessment and plan: Severe dehydration secondary to decreased oral intake The patient admits to poor oral intake in the past weeks because she says that she has not wanted to She does have signs of dehydration including increased skin turgor and somewhat dry mucous membranes Blood pressure has been low, in the 80s/40s on arrival with severe CODY No evidence of infection at this time - Leukocytosis likely secondary to hemoconcentration She has gotten 2L NS bolus in the ED Plan 1L LR bolus now Start 100mL/hr LR maintenance fluid, Hold Lasix Cardiac and pulse ox monitoring. Hourly BP monitoring Repeat renal function in AM (2) CODY (acute kidney injury) Current Visit: Yes Status: Acute Assessment and plan: Severe Oliguric/Anuric CODY Serum Creatinine 4.13, eGFR 10. Baseline Cr 0.6, eGFR >60 Suspected etiology is prerenal based on dehydration No indications for acute HD at this time Will repeat Renal function labs in AM, consider RP US (3) Confusion and disorientation Current Visit: Yes Status: Acute Assessment and plan: Slightly increased from baseline Likely secondary to dehydration and hypotension CXR and Head/Abd/Pelvis CT are negative No evidence of infection at this time We will check UA (4) Bradycardia Current Visit: Yes Status: Acute Assessment and plan: Possibly secondary to hypothermia and Use of beta blockers We will warm the patient with a bear hugger and also hold beta blockers (5) Dementia Current Visit: No Status: Chronic Assessment and plan: Chronic Qualifiers: Dementia type: unspecified type Dementia behavioral disturbance: without behavioral disturbance Qualified Code(s): F03.90 - Unspecified dementia without behavioral disturbance (6) Diabetes Current Visit: No Status: Chronic Assessment and plan: History of DM We will hold oral meds Accuchecks ACHS SSI insulin Check HgbA1c in am Qualifiers: Diabetes mellitus type: type 2 Diabetes mellitus laborer marine terminal insulin use: without laborer marine terminal use Diabetes mellitus complication status: without complication Qualified Code(s): E11.9 - Type 2 diabetes mellitus without complications (7) HTN (hypertension) Current Visit: No Status: Chronic Assessment and plan: Hypotensive on this visit Hold meds Qualifiers: Hypertension type: essential hypertension Qualified Code(s): I10 - Essential (primary) hypertension (8) DVT prophylaxis Current Visit: No Status: Acute Assessment and plan: SQ Heparin - Time Spent With Patient Total time spent is greater than 50% in coordination of care (as documented) at patient's floor/unit and/or counseling patient: <Sherlyn Block - Last Filed: 06/30/18 01:48> Date of Encounter: 06/30/18 Internal Medicine - H&P: HPI History of present illness: Ms. Vega is a 78 year old female All Systems PM: A 10-system review of systems was performed and is negative for pertinent findings except as documented above in the HPI. - Constitutional Vitals: Temp Pulse Resp BP Pulse Ox 98.1 F 62 18 88/43 96 06/30/18 00:37 06/30/18 00:37 06/30/18 00:37 06/30/18 00:37 06/30/18 00:37 Internal Med - H&P Results - Labs CBC & Chem 7: 06/29/18 18:05 06/29/18 23:01 Labs: Short CBC 06/29/18 Range/Units 18:05 WBC 13.6 H (4.3-11.1) K/mcL Hgb 15.6 H (11.5-15.4) g/dL Hct 49.1 H (35.3-44.9) % Plt Count 261 (140-400) K/mcL Neutrophils # 9.7 H (1.6-8.9) K/mcL BMP 06/29/18 06/29/18 06/29/18 18:05 19:00 23:01 Sodium Cancelled 138 139 Potassium Cancelled 4.4 4.0 Chloride Cancelled 107 108 H Carbon Dioxide Cancelled 16 L 16 L BUN Cancelled 56 H 53 H Creatinine Cancelled 4.13 H 3.81 H Glucose Cancelled 121 H 96 Calcium Cancelled 8.8 8.4 L Cardiac Enzymes 06/29/18 Range/Units 18:05 Troponin I 0.03 (< 0.04) ng/mL Liver Function 06/29/18 06/29/18 Range/Units 18:05 19:00 Total Bilirubin Cancelled 0.4 AST Cancelled 19 ALT Cancelled 15 Alkaline Phosphatase Cancelled 67 Albumin Cancelled 3.3 L - Impressions ITS Impressions Chest X-Ray 06/29/18 17:11 IMPRESSION: No acute process. Stable appearing left base most likely representing scarring or atelectasis D/ / Ezra Solis MD / Ezra Solis MD Interpreting Provider: Ezra Solis MD Abdomen/Pelvis CT 06/29/18 17:19 IMPRESSION: 1. No acute findings identified in the abdomen and pelvis. D/ / Adam Saravia MD / Adam Saravia MD Interpreting Provider: Adam Saravia MD Head CT 06/29/18 17:19 IMPRESSION: No acute intracranial abnormality. Findings most suggestive of chronic microvascular ischemic changes and global cerebral atrophy similar to previous exam. D/ / Daniel Russ MD / Daniel Russ MD Interpreting Provider: Daniel Russ MD - Time Spent With Patient Total time spent is greater than 50% in coordination of care (as documented) at patient's floor/unit and/or counseling patient: - Attending Attestation I performed a history and physical exam of the patient and discussed management with the resident. I reviewed the resident's note and agree with the documented findings and plan of care. Joann Vega is a 78 year old woman with a history of diabetes, dementia and Parkinsons disease admitted here just over a month ago for an acute confusional state believed precipitated by cystitis. It appears that she was discharged to an [facility] where her insurance lapsed after 20 days of rehabilitation and was taken home. She is brought in now with genera lized weakness, decreased appetite and an inability to ambulate. She also had an episode of vomiting, appeared pale and seemed slightly more altered than her baseline. In the ER she was found hypothermic and hypotensive. Physical exam remarkable for a well-developed white F in NAD, oriented to person but not place and time, no focal deficits apparent, skin warm but very pale, dry mucous membranes, no LAD, CTABL, nl s1/s2, abdomen soft and non-tender, no c/c/e, depressed affect. Labs remarkable for serum Cr >4, wbc 13. Will admit as inpatient for acute metabolic encephalopathy with stage 3 acute kidney injury and dehydration. Insert Stafford for UO monitoring. Fluid resuscitation and monitor lytes closely. If lactic acid not trending down, CT abdomen will be ordered. As of now there are no clinical signs of infection warranting antimicrobials. Check UA. Hold home meds due to nephrotoxicity. Hold beta blockers due to bradycardia. Monitor on telemetry. Nephrology consultation advised for f/u. Unable to obtain family history due to poor mental status. CHRISTY TEIXEIRA.
[2018-06-29] MEDS ORDERED: Ringers Solution, Lactated 1,000 ML ONE (21:14)
[2018-06-29] MEDS ORDERED: Naloxone 0.4 MG/ML INJ IVP PRN (21:23)
[2018-06-29] MEDS ORDERED: Ringers Solution, Lactated 1,000 ML IVC ONE (21:26)
[2018-06-29] MEDS ORDERED: Dextrose Gel 15 GM/37.5 ML TUBE PO PRN ×2 (21:44)
[2018-06-29] MEDS ORDERED: *HR* Dextrose 50 % in Water (Syg) 50 ML SYRINGE IVP PRN (21:44)
[2018-06-29] MEDS ORDERED: D5% in Water 1,000 ML IVC PRN (21:44)
[2018-06-29] MEDS: Ringers Solution, Lactated 1,000 ML IVC SCH (22:38)
[2018-06-29 23:31] LABS: Calcium 8.4 mg/dL (8.6-10.3)
[2018-06-30] MEDS ORDERED: Ringers Solution, Lactated 500 ML IVC ONE (01:44)
[2018-06-30] MEDS ORDERED: 0.9 % Sodium Chloride 1,000 ML IVC ONE (01:50)
[2018-06-30] MEDS ORDERED: 0.9 % Sodium Chloride 1,000 ML ONE (01:51)
[2018-06-30 03:47] LABS: Basophils % 0.1 %; Eosinophils % 0.1 %; Hematocrit 37.5 % (35.3-44.9); Immature Granulocytes % 0.3 % (0-4); Lymphocytes # 2.9 K/mcL (0.6-4.6); Lymphocytes % 28.6 %; Mean Corpuscular HGB Conc 32.8 g/dL (31.6-35.5); Mean Corpuscular Hemoglobin 29.1 pg (28.0-33.3); Mean Corpuscular Volume 88.9 fL (83.0-100.0); Mean Platelet Volume 11.5 fL (9.4-12.4); Monocytes # 0.7 K/mcL (0.0-1.3); Monocytes % 7.2 %; Neutrophils # 6.4 K/mcL (1.6-8.9); Platelet Count 184 K/mcL (140-400); Red Blood Count 4.22 M/mcL (3.82-4.97); Red Cell Distribution Width 14.7 % (11.5-14.5); Segmented Neutrophils % 63.7 %
[2018-06-30 03:49] LABS: Hemoglobin 12.3 g/dL (11.5-15.4)
[2018-06-30 03:58] LABS: Albumin/Globulin Ratio 1.2 (1.1-2.2); Bilirubin,Total 0.3 mg/dL (0.3-1.0); Calcium 8.2 mg/dL (8.6-10.3); Globulin 2.5 g/dL (2.4-3.5); Magnesium 1.4 mg/dL (1.6-2.6); Phosphorous 4.3 mg/dL (2.7-4.5); Potassium 3.9 mEq/L (3.5-5.1); Total Protein 5.5 g/dL (6.4-8.9)
[2018-06-30] MEDS: *HR* Heparin 5,000 UNIT/ML VIAL SQ SCH ×4 (05:46→21:07)
[2018-06-30 06:01] LABS: Bilirubin,Urine Negative (Negative); Blood,Urine Negative (Negative); Clarity,Urine Clear (Clear); Color,Urine Yellow (Yellow); Glucose,Urine (UA) Normal (Normal); Ketones,Urine Trace mg/dL (Negative); Leukocyte Esterase,Urine Negative (Negative); Nitrite,Urine Negative (Negative); PH,Urine 5.5 pH Units (5.0-8.0); Protein,Urine Negative (Neg-Trace); Specific Gravity,Urine 1.009 (1.010-1.025); Urobilinogen,Urine Normal (Normal)
[2018-06-30 06:50] LABS: Estimated Average Glucose 151 mg/dl; Hemoglobin A1C 6.9 %
[2018-06-30] MEDS: Insulin LISPRO 300 UNITS/3 ML VIAL SQ SCH ×4 (07:55→21:04)
[2018-06-30] MEDS: Ringers Solution, Lactated 1,000 ML IVC SCH ×2 (07:57→18:36)
[2018-06-30] MEDS: Carbidopa/Levodopa 25/250 TABLET PO SCH ×3 (08:06→21:05)
--- NOTE | 2018-06-30 08:47 | Internal Med Progress Note ---
Hospitalist Progress Note - Encounter Date of Encounter: 06/30/18 Time of Encounter: 09:00 - Exam Vitals: Temp Pulse Resp BP Pulse Ox 98.2 F 73 18 90/43 96 06/30/18 07:26 06/30/18 07:26 06/30/18 07:26 06/30/18 07:26 06/30/18 07:45 Exam: Gen:Alert but not oriented to time or place Eyes: anicteric sclerae, moist conjunctivae; no lid-lag; Pupils equal and reactive to light HENT: Atraumatic; oropharynx clear with moist mucous membranes and no mucosal ulcerations; normal hard and soft palate Neck: Trachea midline; supple, no thyromegaly or lymphadenopathy Cardiac: RRR but slow, no murmur, +S1/S2 Pulmonary: CTA bilaterally, no wheezes, rales or rhonchi, equal chest expansion Abdomen: soft, nontender, no guarding. No masses or hepatosplenomegaly MSK: ROM intact, no joint swelling noted Extremities: Trace BLE edema, nontender calf, no cyanosis or clubbing Skin: Cold to touch, somewhat dry appearing; no rash, ulcers or subcutaneous nodules Neuro: moves all extremities, no focal deficits. - Assessment and Plan (1) Acute metabolic encephalopathy Current Visit: Yes Status: Acute Assessment and Plan: Pt comes in weakness, decreased appetite and altered mental status possibly secondary to severe dehydration vs UTI vs acute CVA This am , patient still not oriented to time or place. Will cover empirically for UTI with ceftriaxone, Pt has had klebsiella UTI in the recent past. Pneumonia is also a possibility, consider repeat cxr after hydration Continue resuscitation with ringers lactate due to ongoing metabolic acidosis. Creatinine has improved. CT head was negative. Obtain MRI to r/o acute CVA (2) CODY (acute kidney injury) Current Visit: Yes Status: Acute Assessment and Plan: Patient has no history of CKD. continue aggresive Iv fluid resuscitation Monitor BMP (3) Dehydration Current Visit: Yes Status: Acute Assessment and Plan: Continue IV fluids (4) HTN (hypertension) Current Visit: No Status: Chronic Assessment and Plan: Anti hypertensives on hold due to borderline hypotension on arrival (5) Parkinson disease Current Visit: No Status: Chronic Assessment and Plan: Continue carbidopa/levodopa (6) Diabetes Current Visit: No Status: Chronic Assessment and Plan: Continue insulin. Monitor fingersticks DVT Prophylaxis: Heparin sc - Time Spent with Patient Total time spent is greater than 50% in coordination of care (as documented) at patient's floor/unit and/or counseling patient: Internal Medicine: Result - Labs CBC & Chem 7: 06/30/18 03:19 06/30/18 03:19 Labs: Short CBC 06/29/18 06/30/18 Range/Units 18:05 03:19 WBC 13.6 H 10.0 (4.3-11.1) K/mcL Hgb 15.6 H 12.3 D (11.5-15.4) g/dL Hct 49.1 H 37.5 (35.3-44.9) % Plt Count 261 184 (140-400) K/mcL Neutrophils # 9.7 H 6.4 (1.6-8.9) K/mcL BMP 06/29/18 06/29/18 06/29/18 18:05 19:00 23:01 Sodium Cancelled 138 139 Potassium Cancelled 4.4 4.0 Chloride Cancelled 107 108 H Carbon Dioxide Cancelled 16 L 16 L BUN Cancelled 56 H 53 H Creatinine Cancelled 4.13 H 3.81 H Glucose Cancelled 121 H 96 Calcium Cancelled 8.8 8.4 L 06/30/18 03:19 Sodium 140 Potassium 3.9 Chloride 110 H Carbon Dioxide 16 L BUN 52 H Creatinine 3.66 H Glucose 62 L Calcium 8.2 L Cardiac Enzymes 06/29/18 Range/Units 18:05 Troponin I 0.03 (< 0.04) ng/mL Liver Function 06/29/18 06/29/18 06/30/18 Range/Units 18:05 19:00 03:19 Total Bilirubin Cancelled 0.4 0.3 AST Cancelled 19 16 ALT Cancelled 15 11 Alkaline Phosphatase Cancelled 67 60 Albumin Cancelled 3.3 L 3.0 L Urine 06/30/18 Range/Units 05:45 Urine Color Yellow (Yellow) Urine Clarity Clear (Clear) Urine pH 5.5 (5.0-8.0) pH Units Ur Specific [place] 1.009 L (1.010-1.025) Urine Protein Negative (Neg-Trace) mg/dL Urine Glucose (UA) Normal (Normal) mg/dL - Impressions Impressions Chest X-Ray 06/29/18 17:11 IMPRESSION: No acute process. Stable appearing left base most likely representing scarring or atelectasis D/ / Ezra Solis MD / Ezra Solis MD Interpreting Provider: Ezra Solis MD Abdomen/Pelvis CT 06/29/18 17:19 IMPRESSION: 1. No acute findings identified in the abdomen and pelvis. D/ / Adam Saravia MD / Adam Saravia MD Interpreting Provider: Adam Saravia MD Head CT 06/29/18 17:19 IMPRESSION: No acute intracranial abnormality. Findings most suggestive of chronic microvascular ischemic changes and global cerebral atrophy similar to previous exam. D/ / Daniel Russ MD / Daniel Russ MD Interpreting Provider: Daniel Russ MD Consult Discharge Plan - Plan Referrals: Jaz Dominguez MD [Primary Care Provider] - (4) HTN (hypertension) Qualifiers: Hypertension type: essential hypertension Qualified Code(s): I10 - Essential (primary) hypertension (6) Diabetes Qualifiers: Diabetes mellitus type: type 2 Diabetes mellitus shelter insulin use: without terminal system operator use Diabetes mellitus complication status: without complication Qualified Code(s): E11.9 - Type 2 diabetes mellitus without complications
[2018-06-30] MEDS ORDERED: NON-FORMULARY MEDICATION 1 EACH EACH (Ranitidine Hcl [Zantac] 150 MG) PO SCH (09:00)
[2018-06-30] MEDS ORDERED: Gabapentin 300 MG CAPSULE PO SCH ×2 (09:00→21:00)
[2018-06-30] MEDS: cefTRIAXone 1,000 MG in Water for inj. (sterile) 20 ML 10 ML IVP SCH (11:45)
--- NOTE | 2018-06-30 14:09 | Nephrology Consult Note ---
<ЕкатеринаsorayaDeepak strong - Last Filed: 06/30/18 15:18> Date of Encounter: 06/30/18 Time of Encounter: 13:20 Assessment and Plan (1) CODY (acute kidney injury) Current Visit: Yes Status: Acute - BUN/creatinine of 52/3.66 most recently - This is improved from presentation where creatinine was 4.13 - No history of kidney disease with creatinine of 0.65 in May 2018 - Most likely etiology of hypovolemia secondary to poor by mouth intake - Also questionable etiology of infectious although urinalysis is not strongly suggestive - Per chart review, patient has received 3 L of normal saline 2 L of lactated Ringer's, however in I/Os only 1 L is recorded. -Total I/O balance of +250 mL. We will discuss this with nursing - Currently receiving lactated Ringer's 125 mL per hour - 800 mL of urinary output. Stafford catheter in place Plan - Agree with continued gentle hydration with LR at 125/hr. Consider Bicarb addition if continues to be acidodic. No echocardiogram on record and no history of congestive heart failure - We will obtain urine creatinine, sodium, urea, eosinophils to evaluate for further etiologies - We will also obtain creatinine kinase in case of rhabdomyolysis - Renal ultrasound obtained and does not show any atrophy or hydronephrosis - Continue to monitor and avoid nephrotoxins (2) HTN (hypertension) Current Visit: Yes Status: Chronic - Borderline low - Continue to hold antihypertensives Qualifiers: Hypertension type: essential hypertension Qualified Code(s): I10 - Essential (primary) hypertension (3) Acute metabolic encephalopathy Current Visit: Yes Status: Acute - Likely multifactorial - Unclear baseline as she has a history of dementia - Possible uremia contribution but also possible infection and acidosis co mponent. - Continue treatment of underlying conditions (4) Metabolic acidosis Current Visit: Yes Status: Acute - Bicarbinate of 16 - Anion gap of 14 - Likely secondary to uremia as well as lactic acidosis - Lactic acidosis resolved and uremia improving - Continue management as above. History of Present Illness - Reason for Consult Consult date: 06/30/18 Acute Kidney Injury - Chief Complaint Altered mental status - History of Present Illness Ms. Vega presented to the emergency room with the complaint of weakness, altered mental status. Nephrology was consulted on 06/30/18 for severe acute kidney injury. She does have a past medical history of dementia, diabetes, Parkinson's disease. She was also recently admitted to [facility] for Klebsiella UTI with sepsis and was discharged to SNF on 05/16/18. She is scheduled to undergo rehabilitation however she reportedly ran out of insurance and was discharged. Upon presentation, patient was altered and unable to provide a reliable history. According to family members, patient had been improving however on day of presentation she had a substantial drop in her mental status. She did not have any specific complaints at that time. She also reportedly had a decrease in her appetite and has had poor oral intake. Upon presentation to the emergency room, patient's vitals were significant for bradycardia in the high 50s, blood pressure borderline in 90s over 50s. Vital signs were significant for a WBC elevation of 13.6 with neutrophil predominance, bicarbonate 16, BUNs/creatinine of 56/4.13. Magnesium low at 1.2, lipase 109 and TSH 2.558. Of note, her creatinine at last visit in May 2018 was within normal limits at 0.65. Chest x-ray showed no acute process with likely atelectasis in the left base. Abdominal CT was unremarkable for acute process. Head CT showed chronic macrovascular ischemic changes and global cerebral atrophy similar to previous exam. Renal ultrasound was obtained and showed no evidence of hydronephrosis but did show inferior location of the left kidney with possible malrotation. Also possible duplicated collecting system. On interview today, patient is notably not cooperative with exam. She reports that she is feeling noncontributory but is unable to elaborate further. She is quiet and is not able to find words. She is able to express that she is not having any fevers and chills and denies any pain at this time. She does have family at bedside who states she has had a couple sips of water and a couple bites of lunch but otherwise has been quiet and has not been complaining of anything. Past Med Surg Social Fam HX - Past Medical History Medical history: dementia, diabetes Additional medical history: Parkinson's Psychiatric history: depression, other - Past Surgical History Surgical History: non-contributory - Social History Smoking Status: Never smoker Smokeless Tobacco Status: No Alcohol use: none Drug use: none Medications and Allergies Amlodipine Besylate 10 mg PO DAILY 05/13/18 [History] Carbidopa/Levodopa [Carbidopa-Levodopa 25-250 Tab] 0.5 tab PO TID 05/13/18 [History] Citalopram [CeleXA] 20 mg PO DAILY 05/13/18 [History] Furosemide [Lasix] 20 mg PO DAILY 05/13/18 [History] Gabapentin [Neurontin] 300 mg PO BID 05/13/18 [History] Gabapentin [Neurontin] 600 mg PO HS 05/13/18 [History] Metformin HCl 1,000 mg PO QAM 05/13/18 [History] Metformin HCl 1,500 mg PO HS 05/13/18 [History] Omeprazole [PriLOSEC] 40 mg PO DAILY 05/13/18 [History] Pravastatin Sodium [Pravachol] 40 mg PO HS 05/13/18 [History] Tolterodine Tartrate [Tolterodine Tartrate ER] 4 mg PO DAILY 05/13/18 [History] Trazodone HCl 200 mg PO HS 05/13/18 [History] rOPINIRole [Requip] 0.5 mg PO HS 05/13/18 [History] raNITIdine HCl [Zantac] 150 mg PO BID 05/13/18 [History] Propranolol LA (24 HR) [Inderal LA] 60 mg PO DAILY 06/30/18 [History] Allergy/AdvReac Type Severity Reaction Status Date / Time No Known Allergies Allergy Verified 05/13/18 18:18 Review of Systems ROS unobtainable: due to mental status Exam - Vital Signs Vital signs: Initial Vital Signs Temp Pulse Resp BP Pulse Ox 95 F L 58 18 90/53 98 06/29/18 17:31 06/29/18 17:31 06/29/18 17:31 06/29/18 17:31 06/29/18 17:31 Vital Signs - Last 8 Hours Temp Pulse Resp BP Pulse Ox 06/30/18 11:50 98.3 F 76 16 95/45 97 06/30/18 07:45 96 06/30/18 07:26 98.2 F 73 18 90/43 97 Intake and Output 06/29/18 06/30/18 06/30/18 23:59 07:59 15:59 Intake Total 1000 / 1000 50 / 50 Output Total 250 / 250 550 / 550 Balance 750 / 750 -500 / -500 Intake: IV Fluids 1000 / 1000 Lactated Ringers 1,000 ML @ 100 1000 / 1000 mls/hr IVC .Q10H [facility] Rx#: [id number] Oral 50 / 50 Output: Catheter 250 / 250 550 / 550 Other: Meal Breakfast Percent of Meal Consumed 5% Weight 70 kg 70 kg Blood Glucose* 97 124 107 Patient Weight 06/30/18 23:59 Weight 70 kg - General Appearance Exam: Gen.: Vitals noted. No acute distress. Alert but not oriented. Sitting uncomfortably in bed. Food tray minimally touched HEENT: PERRL/EOMI, oropharynx clear, Normocephalic, atraumatic, MMM Cardiac: RRR, systolic murmur, +S1/S2. Palpable thrill Pulmonary: CTA bilaterally, no wheezes, rales or rhonchi, equal chest expansion Abdomen: soft, nontender, BS noted, no guarding, no rebound. She does notably grimace on palpation of left upper abdomen but does not complain of pain. MSK: no joint swelling noted Extremities: no BLE edema, nontender calf, no cyanosis or clubbing Neuro: Alert but not oriented, moves all extremities, no focal deficits Psych: Able to assess secondary to mental status : Stafford catheter in place with 100 mL of output, yellow urine Results - Lab Results 06/30/18 03:19 06/30/18 03:19 Most recent lab results Calcium 8.2 mg/dL (8.6-10.3) L 06/30/18 03:19 Phosphorus 4.3 mg/dL (2.7-4.5) 06/30/18 03:19 Magnesium 1.4 mg/dL (1.6-2.6) L 06/30/18 03:19 Consult Discharge Plan - Plan Referrals: Jaz Dominguez MD [Primary Care Provider] - <Suha Garcia - Last Filed: 06/30/18 19:45> Date of Encounter: 06/30/18 Exam - Vital Signs Vital signs: Initial Vital Signs Temp Pulse Resp BP Pulse Ox 95 F L 58 18 90/53 98 06/29/18 17:31 06/29/18 17:31 06/29/18 17:31 06/29/18 17:31 06/29/18 17:31 Vital Signs - Last 8 Hours Temp Pulse Resp BP Pulse Ox 06/30/18 16:47 98.5 F 90 16 111/59 96 06/30/18 13:46 74 06/30/18 11:50 98.3 F 76 16 95/45 97 Intake and Output 06/30/18 06/30/18 06/30/18 07:59 15:59 23:59 Intake Total 1000 / 1000 50 / 50 2816 / 2816 Output Total 250 / 250 550 / 550 550 / 550 Balance 750 / 750 -500 / -500 2266 / 2266 Intake: IV Fluids 1000 / 1000 2216 / 2216 Lactated Ringers 1,000 ML @ 100 1000 / 1000 1000 / 1000 mls/hr IVC .Q10H [facility] Rx#: [id number] Rocephin 1,000 MG In Water for inj. (sterile) 10 ML @ 600 mls/ hr IVP DAILY [facility] Rx#:[id number] Magnesium Sulfate 2 GM In 0.9 % 104 / 104 Sodium Chloride 100 ML @ 52 mls/hr IVPB ONCE ONE Rx#: [id number] Oral 50 / 50 600 / 600 Output: Catheter 250 / 250 550 / 550 550 / 550 Other: Meal Breakfast Dinner Percent of Meal Consumed 5% 10% Weight 70 kg Blood Glucose* 124 107 114 Patient Weight 06/30/18 23:59 Weight 70 kg Results - Lab Results 06/30/18 03:19 06/30/18 03:19 Most recent lab results Calcium 8.2 mg/dL (8.6-10.3) L 06/30/18 03:19 Phosphorus 4.3 mg/dL (2.7-4.5) 06/30/18 03:19 Magnesium 1.4 mg/dL (1.6-2.6) L 06/30/18 03:19 Urine Creatinine 29 mg/dL 06/30/18 16:55 Urine Sodium 109.2 mEq/L 06/30/18 16:55 - Attending Attestation I examined this patient and my medical decision-making was reviewed with the Resident Physician. I agree with the documented findings, disposition and treatment plan as described except to the extent set forth below. Pt seen and examined and in brief; 78 y o female with PMH of DM and dementia admitted with generalized weakness and altered mental status. She was noted with elevated SCr at 4.13 from baseline around 0.65. Pt and are poor historian with most information obtained from records. Exam unremarkable except for frailty. CODY likely pre-renal. Agree with volume repletion already underway with improving SCr at 3.66. Avoid nephrotoxins if possible. No acute indication for RETREADER at this time. CODY workup started. US of kidney noted.
[2018-06-30 17:29] LABS: Sodium, Urine 109.2 mEq/L
[2018-06-30] MEDS ORDERED: NON-FORMULARY MEDICATION 1 EACH EACH (Pravastatin Sodium [Pravachol] 40 MG) PO SCH (21:00)
[2018-06-30] MEDS: rOPINIRole 1 MG TABLET PO SCH (21:05)
[2018-07-01] MEDS: Ringers Solution, Lactated 1,000 ML IVC SCH ×3 (04:06→21:18)
[2018-07-01 04:59] LABS: Basophils % 0.2 %; Eosinophils # 0.1 K/mcL (0.0-0.6); Eosinophils % 1.4 %; Hematocrit 34.2 % (35.3-44.9); Hemoglobin 11.5 g/dL (11.5-15.4); Immature Granulocytes % 0.2 % (0-4); Lymphocytes # 1.9 K/mcL (0.6-4.6); Lymphocytes % 23.6 %; Mean Corpuscular HGB Conc 33.6 g/dL (31.6-35.5); Mean Corpuscular Hemoglobin 29.4 pg (28.0-33.3); Mean Corpuscular Volume 87.5 fL (83.0-100.0); Mean Platelet Volume 10.6 fL (9.4-12.4); Monocytes # 0.6 K/mcL (0.0-1.3); Monocytes % 7.1 %; Neutrophils # 5.4 K/mcL (1.6-8.9); Platelet Count 172 K/mcL (140-400); Red Blood Count 3.91 M/mcL (3.82-4.97); Red Cell Distribution Width 15.2 % (11.5-14.5); Segmented Neutrophils % 67.5 %
[2018-07-01] MEDS: *HR* Heparin 5,000 UNIT/ML VIAL SQ SCH ×3 (05:14→21:27)
[2018-07-01 05:35] LABS: Calcium 8.8 mg/dL (8.6-10.3); Magnesium 1.6 mg/dL (1.6-2.6); Phosphorous 2.7 mg/dL (2.7-4.5)
[2018-07-01] MEDS: Insulin LISPRO 300 UNITS/3 ML VIAL SQ SCH ×4 (07:29→21:16)
[2018-07-01] MEDS: cefTRIAXone 1,000 MG in Water for inj. (sterile) 20 ML 10 ML IVP SCH (07:39)
[2018-07-01] MEDS: Carbidopa/Levodopa 25/250 TABLET PO SCH ×3 (07:40→21:17)
[2018-07-01] MEDS: Tolterodine LA (24 HR) 2 MG CAP.ER.24H PO SCH (07:40)
--- NOTE | 2018-07-01 09:20 | Internal Med Progress Note ---
Hospitalist Progress Note - Encounter Date of Encounter: 07/01/18 Time of Encounter: 09:19 - Subjective Interval History: 78 F with PMH of Dementia Admitted and being managed for encephalopathy shmuel due to Uremia from CODY and Dehydration Renal function improving No CVA, MRI noted Patient unable to participate in evaluation, completely confused, sighs frequently and oriented to self only She otherwise looks comfortable and not in distress She may be transferred to a regular floor - Exam Vitals: Temp Pulse Resp BP Pulse Ox 97.8 F 65 16 97/49 94 07/01/18 06:59 07/01/18 06:59 07/01/18 06:59 07/01/18 06:59 07/01/18 06:59 Exam: Gen - Awake, alert, disoriented, oriented to self only HEENT - NCAT, PERRLA, EOMI, hearing grossly intact, oropharynx benign Heart -S1, S2, RRR, no m/g/r Resp - CTAB,no added sounds GI - Soft, not tender, no palpably enlarged organs, BS present in all quadrants Back: NO CVA tenderness Skin - Warm, dry, no rashes/lesions/ulcers Psych -Appropriate affect Extremities: No pedal edema, normal inspection - Assessment and Plan (1) Parkinson disease Current Visit: Yes Status: Chronic Assessment and Plan: Continue carbidopa/levodopa (2) Diabetes Current Visit: Yes Status: Chronic Assessment and Plan: Continue insulin. Monitor fingersticks (3) HTN (hypertension) Current Visit: Yes Status: Chronic Assessment and Plan: Hold home Anti hypertensives Blood pressure still low normal (4) CODY (acute kidney injury) Current Visit: Yes Status: Acute Assessment and Plan: Improving Patient has no history of CKD. continue aggresive Iv fluid resuscitation Continue to hold home lasix/metformin Monitor BMP (5) Dehydration Current Visit: Yes Status: Acute Assessment and Plan: Continue IV fluids, as in CODY (6) Acute metabolic encephalopathy Current Visit: Yes Status: Acute Assessment and Plan: Pt comes in weakness, decreased appetite and altered mental status possibly secondary to severe dehydration vs UTI MRI negative UA negative for UTI Patient remains oriented to self only, baseline is unknown, will contact family MRI negative for acute abnormalities Continue IVF hydration Fall and aspiration risk -observe precautions PT, OT and speech eval requested DVT Prophylaxis: Heparin sc - Time Spent with Patient Total time spent is greater than 50% in coordination of care (as documented) at patient's floor/unit and/or counseling patient: Internal Medicine: Result - Labs CBC & Chem 7: 07/01/18 04:44 07/01/18 04:44 Labs: Short CBC 07/01/18 Range/Units 04:44 WBC 8.0 (4.3-11.1) K/mcL Hgb 11.5 (11.5-15.4) g/dL Hct 34.2 L (35.3-44.9) % Plt Count 172 (140-400) K/mcL Neutrophils # 5.4 (1.6-8.9) K/mcL BMP 07/01/18 04:44 Sodium 139 Potassium 3.0 L Chloride 109 H Carbon Dioxide 18 L BUN 36 H Creatinine 2.14 H Glucose 128 H Calcium 8.8 - Impressions Impressions Retroperitoneum Ultrasound 06/30/18 09:00 IMPRESSION: 1. No evidence of hydronephrosis. 2. 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 D/ / 06/30/2018 11:01:33 Gary Winkler MD / lynsey Interpreting Provider: Gary Winkler MD Brain MRI 06/30/18 09:05 IMPRESSION: 1. No acute intracranial abnormality. 2. Diffuse parenchymal volume loss with severe chronic white matter microvascular ischemic changes. 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
[2018-07-01] MEDS ORDERED: Haloperidol Lactate 5 MG/ML VIAL IVP ONE (11:40)
--- NOTE | 2018-07-01 13:48 | Nephrology Progress Note ---
Date of Encounter: 07/01/18 Time of Encounter: 11:37 - Assessment and Plan (1) CODY (acute kidney injury) Current Visit: Yes Status: Acute - BUN/creatinine continues to improve to 36/2.14 most recently from 52/3.66 - This is improved from presentation where creatinine was 4.13 - No history of kidney disease with creatinine of 0.65 in May 2018 - Most likely etiology of hypovolemia secondary to poor by mouth intake - Also questionable etiology of infectious although urinalysis is not strongly suggestive - FEurea was calculated at 47.3 suggesting intrinsic kidney disease however this was noticeably collected after receiving fluids. Her rapid improvement with fluids does suggest that this was more pre-renal. - Per chart review, patient has received 3 L of normal saline 2 L of lactated Ringer's, however in I/Os only 1 L is recorded. -Total I/O balance of + 4 L since admission - Currently receiving lactated Ringer's 125 mL per hour - Stafford catheter in place with good urine output - Negative urine eosinophils, no evidence of rhabdo with/ - Electrolytes replaced. Plan - Agree with continued gentle hydration with LR at 125/hr. Consider Bicarb addition if continues to be acidodic but this is improved. No echocardiogram on record and no history of congestive heart failure - Renal ultrasound obtained and does not show any atrophy or hydronephrosis - Continue to monitor and avoid nephrotoxins (2) HTN (hypertension) Current Visit: Yes Status: Chronic Qualifiers: Hypertension type: essential hypertension Qualified Code(s): I10 - Essential (primary) hypertension (3) Acute metabolic encephalopathy Current Visit: Yes Status: Acute - Likely multifactorial - Unclear baseline as she has a history of dementia - Less likely uremia component as she is not improving with improving kidney function. - contribution also possible infection and acidosis component. Acidosis improving. - Continue treatment of underlying conditions (4) Metabolic acidosis Current Visit: Yes Status: Acute - Bicarbinate of 16, improved to 18 - Anion gap of 14 on admission - Likely secondary to uremia as well as lactic acidosis - Lactic acidosis resolved and uremia improving - Continue management as above. (5) Hypokalemia Current Visit: Yes Status: Acute K of 3.0 replaced this AM with Magnesium (6) Hypomagnesemia Current Visit: Yes Status: Acute Mag of 1.6, replaced. Subjective Principal diagnosis: CODY Interval history: Patient seen and examined at bedside this morning. She is very tearful during interview but is unable to explain why. Family who is present in the room st ates that she has been unable to voice her concerns or complaints throughout the morning. She is notably tender in the epigastric region and may be trying to communicate some pain. She also states repeatedly that she does not understand why "nobody wants her". Objective - Vital Signs Vital signs: Vital Signs Temp Pulse Resp BP Pulse Ox 07/01/18 11:47 100 18 98 07/01/18 06:59 97.8 F 65 16 97/49 94 07/01/18 03:29 98.6 F 74 17 107/83 95 06/30/18 23:22 97.5 F L 84 16 95/50 92 06/30/18 20:08 98.6 F 88 18 108/54 96 06/30/18 16:47 98.5 F 90 16 111/59 96 06/30/18 13:46 74 Intake and Output 06/30/18 07/01/18 07/01/18 23:59 07:59 15:59 Intake Total 4816 / 4816 2400 / 2400 950 / 950 Output Total 1725 / 1725 1100 / 1100 850 / 850 Balance 3091 / 3091 1300 / 1300 100 / 100 Intake: IV Fluids 4216 / 4216 2000 / 2000 950 / 950 Lactated Ringers 1,000 ML @ 125 1000 / 1000 1000 / 1000 950 / 950 mls/hr IVC .Q8H [facility] Rx#: [id number] Rocephin 1,000 MG In Water for inj. (sterile) 10 ML @ 600 mls/ hr IVP DAILY [facility] Rx#:[id number] Magnesium Sulfate 2 GM In 0.9 % 104 / 104 Sodium Chloride 100 ML @ 52 mls/hr IVPB ONCE ONE Rx#: [id number] Oral 600 / 600 400 / 400 Output: Catheter 1725 / 1725 1100 / 1100 850 / 850 Other: Meal Dinner Percent of Meal Consumed 10% Weight 71 kg Blood Glucose* 114 111 127 Patient Weight 07/01/18 23:59 Weight 71 kg - General Appearance Exam: Gen.: Vitals noted. No acute distress. Alert but not oriented. Lying down co mfortably in bed. Tearful during exam HEENT: PERRL/EOMI, oropharynx clear, Normocephalic, atraumatic, MMM Cardiac: RRR, systolic murmur, +S1/S2. Palpable thrill Pulmonary: CTA bilaterally, no wheezes, rales or rhonchi, equal chest expansion Abdomen: soft, appears tender to epigastric region of abdomen, no guarding, no rebound. MSK: no joint swelling noted Extremities: no BLE edema, nontender calf, no cyanosis or clubbing Neuro: Alert but not oriented, moves all extremities, no focal deficits Psych: Able to assess secondary to mental status : Stafford catheter in place with 50 mL of output, yellow urine - Lab 07/01/18 04:44 07/01/18 04:44 Most recent lab results Calcium 8.8 mg/dL (8.6-10.3) 07/01/18 04:44 Phosphorus 2.7 mg/dL (2.7-4.5) 07/01/18 04:44 Magnesium 1.6 mg/dL (1.6-2.6) 07/01/18 04:44 Urine Creatinine 29 mg/dL 06/30/18 16:55 Urine Sodium 109.2 mEq/L 06/30/18 16:55 Consult Discharge Plan - Plan Referrals: Sinan Garcia DO [Non-Partnered Physician] - 07/08/18 9:15 am
[2018-07-01] MEDS: rOPINIRole 1 MG TABLET PO SCH (21:16)
[2018-07-02 00:41] LABS: Basophils % 0.2 %; Eosinophils # 0.1 K/mcL (0.0-0.6); Eosinophils % 0.9 %; Hematocrit 38.5 % (35.3-44.9); Hemoglobin 12.7 g/dL (11.5-15.4); Immature Granulocytes % 0.4 % (0-4); Lymphocytes # 2.5 K/mcL (0.6-4.6); Lymphocytes % 30.8 %; Mean Corpuscular Hemoglobin 29.1 pg (28.0-33.3); Mean Corpuscular Volume 88.1 fL (83.0-100.0); Monocytes # 0.5 K/mcL (0.0-1.3); Monocytes % 6.3 %; Neutrophils # 4.9 K/mcL (1.6-8.9); Platelet Count 171 K/mcL (140-400); Red Blood Count 4.37 M/mcL (3.82-4.97); Segmented Neutrophils % 61.4 %
[2018-07-02] MEDS ORDERED: Melatonin 3 MG TABLET PO ONE (00:48)
[2018-07-02 04:38] LABS: BUN/Creatinine Ratio 21 (6-26); Blood Urea Nitrogen 22 mg/dL (8-23); Calcium 8.8 mg/dL (8.6-10.3); Carbon Dioxide 17 mEq/L (23-29); Chloride 105 mEq/L (98-107); Glucose 174 mg/dL (70-105); Magnesium 1.3 mg/dL (1.6-2.6); Osmolality,Calculated 296 (280-300); Phosphorous 1.9 mg/dL (2.7-4.5); Potassium 2.9 mEq/L (3.5-5.1); Sodium 139 mEq/L (136-145); eGFR For Non-African Americans 50 (> 60)
[2018-07-02] MEDS: Ringers Solution, Lactated 1,000 ML IVC SCH (05:25)
[2018-07-02] MEDS: *HR* Heparin 5,000 UNIT/ML VIAL SQ SCH ×3 (05:26→22:12)
[2018-07-02] MEDS: Carbidopa/Levodopa 25/250 TABLET PO SCH ×4 (09:45→19:57)
[2018-07-02] MEDS: cefTRIAXone 1,000 MG in Water for inj. (sterile) 20 ML 10 ML IVP SCH (10:00)
--- NOTE | 2018-07-02 10:19 | Internal Med Progress Note ---
Hospitalist Progress Note - Encounter Date of Encounter: 07/02/18 Time of Encounter: 10:18 - Subjective Interval History: 78 F with PMH of Dementia Admitted and being managed for encephalopathy likely due to Uremia from CODY and Dehydration Renal function improving No CVA, MRI noted Patient unable to participate in evaluation, completely confused, sighs frequently and oriented to self only Chart review shows confusion in all her visits-always oriented to self only She otherwise looks comfortable and not in distress CODY has resolved She has multiple electrolyte abnormalities today which are being replaced Stafford catheter may be removed Awaiting PTOT eval-per CSM, family may not want placement and patient has home health. Will monitor Chem off IVF and likely discharge a.m if stable - Exam Vitals: Temp Pulse Resp BP Pulse Ox 97.9 F 106 16 145/73 95 07/02/18 07:35 07/02/18 07:35 07/02/18 07:35 07/02/18 07:35 07/02/18 07:35 Exam: Gen - Awake, alert, disoriented, oriented to self only HEENT - NCAT, PERRLA, EOMI, hearing grossly intact, oropharynx benign Heart -S1, S2, RRR, no m/g/r Resp - CTAB,no added sounds GI - Soft, not tender, no palpably enlarged organs, BS present in all quadrants Back: NO CVA tenderness Skin - Warm, dry, no rashes/lesions/ulcers Psych -Appropriate affect Extremities: No pedal edema, normal inspection - Assessment and Plan (1) Parkinson disease Current Visit: Yes Status: Chronic Assessment and Plan: Continue carbidopa/levodopa (2) Diabetes Current Visit: Yes Status: Chronic Assessment and Plan: FS acceptable Continue insulin. Monitor fingersticks (3) HTN (hypertension) Current Visit: Yes Status: Chronic Assessment and Plan: Blood pressure elevated now, resume home medications (4) CODY (acute kidney injury) Current Visit: Yes Status: Resolved Assessment and Plan: Resolved Work up negative, incuding renal USS Likely pre-renal from dehydration D/C IVF Continue to monitor Chem May resume lasix at lower dose a.m (5) Dehydration Current Visit: Yes Status: Resolved (6) Acute metabolic encephalopathy Current Visit: Yes Status: Resolved Assessment and Plan: Pt comes in weakness, decreased appetite and altered mental status possibly secondary to severe dehydration vs UTI CODY has resolved, patient remains confused MRI negative UA negative for UTI Patient remains oriented to self only, baseline is unknown MRI negative for acute abnormalities Fall and aspiration risk -observe precautions PT, OT and speech eval requested (7) Hypophosphatemia Current Visit: Yes Status: Acute Assessment and Plan: Replaced po, monitor a.m labs (8) Hypokalemia Current Visit: Yes Status: Acute Assessment and Plan: Replaced PO and IV Rpt with mrn Chem (9) Hypomagnesemia Current Visit: Yes Status: Acute Assessment and Plan: Replaced with 4 g Mag D/C IVF (10) Dementia Current Visit: Yes Status: Chronic Assessment and Plan: baseline mental status unknown Continue home meds (11) Malnutrition Current Visit: Yes Status: Chronic Assessment and Plan: Continue supplementation - Time Spent with Patient Total time spent is greater than 50% in coordination of care (as documented) at patient's floor/unit and/or counseling patient: Internal Medicine: Result - Labs CBC & Chem 7: 07/02/18 00:21 07/02/18 00:21 Labs: Short CBC 07/02/18 Range/Units 00:21 WBC 8.1 (4.3-11.1) K/mcL Hgb 12.7 (11.5-15.4) g/dL Hct 38.5 (35.3-44.9) % Plt Count 171 (140-400) K/mcL Neutrophils # 4.9 (1.6-8.9) K/mcL BMP 07/02/18 00:21 Sodium 139 Potassium 2.9 L Chloride 105 Carbon Dioxide 17 L BUN 22 Creatinine 1.06 Glucose 174 H Calcium 8.8 Consult Discharge Plan - Plan Referrals: Sinan Garcia DO [Non-Partnered Physician] - 07/08/18 9:15 am (2) Diabetes Qualifiers: Diabetes mellitus type: type 2 Diabetes mellitus termite control service representative insulin use: without correction use Diabetes mellitus complication status: without complication Qualified Code(s): E11.9 - Type 2 diabetes mellitus without complications (3) HTN (hypertension) Qualifiers: Hypertension type: essential hypertension Qualified Code(s): I10 - Essential (primary) hypertension (10) Dementia Qualifiers: Dementia type: unspecified type Dementia behavioral disturbance: without behavioral disturbance Qualified Code(s): F03.90 - Unspecified dementia without behavioral disturbance (11) Malnutrition Qualifiers: Malnutrition type: protein-calorie malnutrition Protein-calorie malnutrition severity: severe Qualified Code(s): E43 - Unspecified severe protein-calorie malnutrition
[2018-07-02] MEDS: Insulin LISPRO 300 UNITS/3 ML VIAL SQ SCH ×4 (10:22→19:55)
[2018-07-02] MEDS: Propranolol LA (24 HR) 60 MG CAP.SA.24H PO SCH (10:22)
[2018-07-02] MEDS: amLODIPine 5 MG TABLET PO SCH (10:22)
[2018-07-02] MEDS: Tolterodine LA (24 HR) 2 MG CAP.ER.24H PO SCH (10:22)
--- NOTE | 2018-07-02 10:40 | Nephrology Progress Note ---
Date of Encounter: 07/02/18 Time of Encounter: 10:38 - Assessment and Plan (1) CODY (acute kidney injury) Current Visit: Yes Status: Acute - BUN/creatinine continues to improve to 22/1.06 from 36/2.14. This is nearly back at baseline - This is improved from presentation where creatinine was 4.13 - No history of kidney disease with creatinine of 0.65 in May 2018 - Most likely etiology of hypovolemia secondary to poor by mouth intake - FEurea was calculated at 47.3 suggesting intrinsic kidney disease however this was noticeably collected after receiving fluids. Her rapid improvement with fluids does suggest that this was more pre-renal. -Total I/O balance of + 3 L since admission - Currently receiving lactated Ringer's 125 mL per hour - Stafford catheter in place with good urine output - Negative urine eosinophils, no evidence of rhabdo with normal CK - Electrolytes replaced. - Renal ultrasound obtained and does not show any atrophy or hydronephrosis Plan - At this point, patient is improving and near baseline kidney function. Her mental status has greatly improved and she is having good urine output. Nephrology will sign off at this time. Thank you for allowing to participate in this consult. Please reconsult as needed - Continue to monitor and avoid nephrotoxins (2) HTN (hypertension) Current Visit: Yes Status: Chronic Qualifiers: Hypertension type: essential hypertension Qualified Code(s): I10 - E ssential (primary) hypertension (3) Acute metabolic encephalopathy Current Visit: Yes Status: Resolved Appears to be resolved today - Likely multifactorial - Unclear baseline as she has a history of dementia - Less likely uremia component as she is not improving with improving kidney function. - contribution also possible infection and acidosis component. Acidosis improving. - Continue treatment of underlying conditions (4) Metabolic acidosis Current Visit: Yes Status: Acute Stable - Bicarbinate of 16, improved to 18 - Anion gap of 14 on admission - Likely secondary to uremia as well as lactic acidosis - Lactic acidosis resolved and uremia improving - Continue management as above. (5) Hypokalemia Current Visit: Yes Status: Acute K of 2.9 this morning Magnesium of 1.3 Replenished this morning by primary team (6) Hypomagnesemia Current Visit: Yes Status: Acute As above Subjective Principal diagnosis: CODY Interval history: Patient seen and examined at bedside this morning. She does appear much improved this morning and is very pleasant. She has no complaints at this time including fevers, chills, nausea, vomiting. She is refusing to take some medications this morning from nursing as she does not like the taste/texture. Objective - Vital Signs Vital signs: Vital Signs Temp Pulse Resp BP Pulse Ox 07/02/18 07:35 97.9 F 106 16 145/73 95 07/02/18 04:08 98.6 F 103 16 158/80 97 07/01/18 23:59 98.5 F 95 16 121/73 94 07/01/18 19:42 97.9 F 96 16 109/66 95 07/01/18 15:18 98.8 F 103 16 115/63 97 07/01/18 11:47 100 18 98 Intake and Output 07/01/18 07/02/18 07/02/18 23:59 07:59 15:59 Intake Total 1000 / 1000 0 / 0 Output Total 1125 / 1125 1000 / 1000 Balance -125 / -125 0 / 0 -1000 / -1000 Intake: IV Fluids 1000 / 1000 0 / 0 Lactated Ringers 1,000 ML @ 125 1000 / 1000 0 / 0 mls/hr IVC .Q8H [facility] Rx#: [id number] Output: Urine 1000 / 1000 Catheter 1125 / 1125 Other: Meal Breakfast Percent of Meal Consumed 30% Weight 71.8 kg 72.3 kg Blood Glucose* 141 153 Patient Weight 07/02/18 23:59 Weight 72.3 kg - General Appearance Exam: Gen.: Vitals noted. No acute distress. AAOx1. Very pleasant HEENT: PERRL/EOMI, oropharynx clear, Normocephalic, atraumatic, MMM Cardiac: RRR, systolic murmur, +S1/S2 Pulmonary: CTA bilaterally, no wheezes, rales or rhonchi, equal chest expansion Abdomen: soft, minimally tender to the patient in the epigastric region, BS noted, no guarding, no rebound. MSK: ROM not assessed, no joint swelling noted Extremities: no BLE edema, nontender calf, no cyanosis or clubbing Neuro: A&Ox1, moves all extremities, no focal deficits Psych: Appropriate mood and behavior : Stafford catheter in place with yellow urine output - Lab 07/02/18 00:21 07/02/18 00:21 Most recent lab results Calcium 8.8 mg/dL (8.6-10.3) 07/02/18 00:21 Phosphorus 1.9 mg/dL (2.7-4.5) L 07/02/18 00:21 Magnesium 1.3 mg/dL (1.6-2.6) L 07/02/18 00:21 Urine Creatinine 29 mg/dL 06/30/18 16:55 Urine Sodium 109.2 mEq/L 06/30/18 16:55 Consult Discharge Plan - Plan Referrals: Sinan Garcia DO [Non-Partnered Physician] - 07/08/18 9:15 am
--- NOTE | 2018-07-02 13:23 | Electrocardiograph Report ---
[place] [id number] Test Date: 2018-06-29 Pat Name: Joann Vega Department: [id number] Room: 2A Gender: F Tape Transferrer: : 1940 Requested By: Igor Alaniz Order Number: [id number] Reading MD: Filipe Liz Measurements Intervals [place] Rate: 56 P: 0 AR: 103 QRS: 50 QRSD: 125 T: -36 QT: 488 QTc: 471 Interpretive Statements Sinus rhythm Short AR interval Nonspecific intraventricular conduction delay Borderline T abnormalities, diffuse leads Electronically Signed On 07-02-2018 13:22:23 EST by Filipe Liz
[2018-07-02] MEDS: rOPINIRole 1 MG TABLET PO SCH (19:57)
[2018-07-02] MEDS: traZODone 50 MG TABLET PO SCH (19:57)
[2018-07-03 05:02] LABS: Basophils % 0.3 %; Eosinophils # 0.1 K/mcL (0.0-0.6); Hematocrit 35.4 % (35.3-44.9); Hemoglobin 11.8 g/dL (11.5-15.4); Immature Granulocytes % 0.3 % (0-4); Lymphocytes # 2.6 K/mcL (0.6-4.6); Lymphocytes % 32.6 %; Mean Corpuscular HGB Conc 33.3 g/dL (31.6-35.5); Mean Platelet Volume 10.8 fL (9.4-12.4); Monocytes # 0.6 K/mcL (0.0-1.3); Neutrophils # 4.7 K/mcL (1.6-8.9); Platelet Count 148 K/mcL (140-400); Red Blood Count 4.07 M/mcL (3.82-4.97); Red Cell Distribution Width 14.9 % (11.5-14.5); Segmented Neutrophils % 58.8 %
[2018-07-03 05:22] LABS: BUN/Creatinine Ratio 16 (6-26); Blood Urea Nitrogen 11 mg/dL (8-23); Calcium 8.2 mg/dL (8.6-10.3); Carbon Dioxide 23 mEq/L (23-29); Chloride 103 mEq/L (98-107); Glucose 191 mg/dL (70-105); Magnesium 1.4 mg/dL (1.6-2.6); Osmolality,Calculated 285 (280-300); Phosphorous 1.7 mg/dL (2.7-4.5); Sodium 135 mEq/L (136-145); eGFR For Non-African Americans > 60 (> 60)
[2018-07-03] MEDS: *HR* Heparin 5,000 UNIT/ML VIAL SQ SCH ×3 (05:32→21:02)
[2018-07-03] MEDS: Carbidopa/Levodopa 25/250 TABLET PO SCH ×3 (09:48→21:01)
[2018-07-03] MEDS: Propranolol LA (24 HR) 60 MG CAP.SA.24H PO SCH (09:48)
[2018-07-03] MEDS: amLODIPine 5 MG TABLET PO SCH (09:49)
[2018-07-03] MEDS: Furosemide 20 MG TABLET PO SCH (09:49)
[2018-07-03] MEDS: Insulin LISPRO 300 UNITS/3 ML VIAL SQ SCH ×4 (09:50→21:02)
[2018-07-03] MEDS: Tolterodine LA (24 HR) 2 MG CAP.ER.24H PO SCH (09:52)
[2018-07-03] MEDS: cefTRIAXone 1,000 MG in Water for inj. (sterile) 20 ML 10 ML IVP SCH (09:53)
--- NOTE | 2018-07-03 10:48 | Internal Med Progress Note ---
Hospitalist Progress Note - Encounter Date of Encounter: 07/03/18 Time of Encounter: 10:47 - Subjective Interval History: 78 F with PMH of Dementia, Parkinson, HTN,DM Admitted and being managed for encephalopathy likely due to Uremia from CODY and Dehydration CODY resolved No CVA, MRI noted Patient remains confused, not agitated, calm Chart review shows confusion in all her visits-always oriented to self only PT/OT recommends ECF/SNF Multiple electrolyte derangements replaced, resumed home meds-lasix - Exam Vitals: Temp Pulse Resp BP Pulse Ox 98.1 F 87 16 113/64 95 07/03/18 07:19 07/03/18 07:19 07/03/18 07:19 07/03/18 07:19 07/03/18 07:19 Exam: Gen - Awake, alert, disoriented, oriented to self only HEENT - NCAT, PERRLA, EOMI, hearing grossly intact, oropharynx benign Heart -S1, S2, RRR, no m/g/r Resp - CTAB,no added sounds GI - Soft, not tender, no palpably enlarged organs, BS present in all quadrants Back: NO CVA tenderness Skin - Warm, dry, no rashes/lesions/ulcers Psych -Appropriate affect Extremities: No pedal edema, normal inspection - Assessment and Plan (1) Parkinson disease Current Visit: Yes Status: Chronic Assessment and Plan: Continue carbidopa/levodopa (2) Diabetes Current Visit: Yes Status: Chronic Assessment and Plan: FS acceptable Continue insulin. Monitor fingersticks (3) HTN (hypertension) Current Visit: Yes Status: Chronic Assessment and Plan: Controlled on home meds, continue same (4) CODY (acute kidney injury) Current Visit: Yes Status: Resolved Assessment and Plan: Resolved Work up negative, including renal USS Likely pre-renal from dehydration Continue to monitor Chem (5) Dehydration Current Visit: Yes Status: Resolved Assessment and Plan: As in CODY (6) Acute metabolic encephalopathy Current Visit: Yes Status: Resolved Assessment and Plan: Seems chronic Pt comes in weakness, decreased appetite and altered mental status possibly secondary to severe dehydration vs UTI CODY has resolved, patient remains confused UA negative for UTI Patient remains oriented to self only, baseline is unknown, but chart review shows consistent documentation of self orientation only throughout visitations MRI negative for acute abnormalities Fall and aspiration risk -observe precautions PT, OT and speech eval noted (7) Hypophosphatemia Current Visit: Yes Status: Acute Assessment and Plan: Replaced po, monitor a.m labs (8) Hypokalemia Current Visit: Yes Status: Acute Assessment and Plan: Replaced PO and IV Rpt with mrn Chem (9) Hypomagnesemia Current Visit: Yes Status: Acute Assessment and Plan: Replaced with 4 g Mag Rpt with a.m chem (10) Dementia Current Visit: Yes Status: Chronic Assessment and Plan: Confused at baseline Continue home meds (11) Malnutrition Current Visit: Yes Status: Chronic Assessment and Plan: Continue supplementation DVT Prophylaxis: Heparin sc - Time Spent with Patient Total time spent is greater than 50% in coordination of care (as documented) at patient's floor/unit and/or counseling patient: Plan of Care Discussed with: nurse Internal Medicine: Result - Labs CBC & Chem 7: 07/03/18 04:45 07/03/18 04:45 Labs: Short CBC 07/03/18 Range/Units 04:45 WBC 7.9 (4.3-11.1) K/mcL Hgb 11.8 (11.5-15.4) g/dL Hct 35.4 (35.3-44.9) % Plt Count 148 (140-400) K/mcL Neutrophils # 4.7 (1.6-8.9) K/mcL BMP 07/03/18 04:45 Sodium 135 L Potassium 3.0 L Chloride 103 Carbon Dioxide 23 BUN 11 Creatinine 0.68 Glucose 191 H Calcium 8.2 L Consult Discharge Plan - Plan Referrals: Sinan Garcia DO [Non-Partnered Physician] - 07/08/18 9:15 am _ (2) Diabetes Qualifiers: Diabetes mellitus type: type 2 Diabetes mellitus terminal operator insulin use: without terminal operator use Diabetes mellitus complication status: without complication Qualified Code(s): E11.9 - Type 2 diabetes mellitus without complications (3) HTN (hypertension) Qualifiers: Hypertension type: essential hypertension Qualified Code(s): I10 - Essential (primary) hypertension (10) Dementia Qualifiers: Dementia type: unspecified type Dementia behavioral disturbance: without behavioral disturbance Qualified Code(s): F03.90 - Unspecified dementia without behavioral disturbance (11) Malnutrition Qualifiers: Malnutrition type: protein-calorie malnutrition Protein-calorie malnutrition severity: severe Qualified Code(s): E43 - Unspecified severe protein-calorie malnutrition
[2018-07-03] MEDS: Ringers Solution, Lactated 1,000 ML IVC SCH (11:17)
[2018-07-03] MEDS: traZODone 50 MG TABLET PO SCH (21:01)
[2018-07-03] MEDS: rOPINIRole 1 MG TABLET PO SCH (21:02)
[2018-07-04] MEDS: *HR* Heparin 5,000 UNIT/ML VIAL SQ SCH ×3 (05:16→22:03)
[2018-07-04 05:27] LABS: Basophils % 0.3 %; Eosinophils # 0.1 K/mcL (0.0-0.6); Eosinophils % 1.6 %; Hematocrit 40.1 % (35.3-44.9); Hemoglobin 12.9 g/dL (11.5-15.4); Immature Granulocytes % 0.4 % (0-4); Lymphocytes # 2.8 K/mcL (0.6-4.6); Lymphocytes % 36.7 %; Mean Corpuscular HGB Conc 32.2 g/dL (31.6-35.5); Mean Corpuscular Hemoglobin 28.5 pg (28.0-33.3); Mean Corpuscular Volume 88.7 fL (83.0-100.0); Mean Platelet Volume 10.8 fL (9.4-12.4); Monocytes # 0.6 K/mcL (0.0-1.3); Platelet Count 153 K/mcL (140-400); Red Blood Count 4.52 M/mcL (3.82-4.97); Red Cell Distribution Width 14.8 % (11.5-14.5)
[2018-07-04 05:41] LABS: BUN/Creatinine Ratio 9 (6-26); Blood Urea Nitrogen 7 mg/dL (8-23); Calcium 8.8 mg/dL (8.6-10.3); Carbon Dioxide 27 mEq/L (23-29); Chloride 102 mEq/L (98-107); Glucose 218 mg/dL (70-105); Magnesium 1.5 mg/dL (1.6-2.6); Osmolality,Calculated 287 (280-300); Phosphorous 2.1 mg/dL (2.7-4.5); Potassium 3.1 mEq/L (3.5-5.1); Sodium 136 mEq/L (136-145); eGFR For Non-African Americans > 60 (> 60)
[2018-07-04] MEDS ORDERED: Potassium Chloride Elixir 20 MEQ/15 ML UDC GTUBE SCH (09:00)
[2018-07-04] MEDS: cefTRIAXone 1,000 MG in Water for inj. (sterile) 20 ML 10 ML IVP SCH (09:01)
--- NOTE | 2018-07-04 09:17 | Discharge Summary ---
Orders not resulted at time of discharge: Pending orders 06/29/18 18:05 Culture,Blood [BC] Stat 07/05/18 04:00 Basic Metabolic Panel AM 0400 CBC [Complete Blood Count] [HEME] AM 0400 Magnesium AM 0400 Phosphorous AM 0400 07/06/18 04:00 Basic Metabolic Panel AM 0400 CBC [Complete Blood Count] [HEME] AM 0400 Magnesium AM 0400 Phosphorous AM 0400 Date of Encounter: 07/04/18 Time of Encounter: 09:17 - Discharge Diagnosis (1) Parkinson disease Status: Chronic (2) Diabetes Status: Chronic Qualifiers: Diabetes mellitus type: type 2 Diabetes mellitus [facility] insulin use: without fci use Diabetes mellitus complication status: without complication Qualified Code(s): E11.9 - Type 2 diabetes mellitus without complications (3) HTN (hypertension) Status: Chronic Qualifiers: Hypertension type: essential hypertension Qualified Code(s): I10 - Essential (primary) hypertension (4) CODY (acute kidney injury) Status: Resolved (5) Dehydration Status: Resolved (6) Acute metabolic encephalopathy Status: Resolved (7) Hypophosphatemia Status: Acute (8) Hypokalemia Status: Acute (9) Hypomagnesemia Status: Acute (10) Dementia Status: Chronic Qualifiers: Dementia type: unspecified type Dementia behavioral disturbance: without behavioral disturbance Qualified Code(s): F03.90 - Unspecified dementia without behavioral disturbance (11) Malnutrition Status: Chronic Qualifiers: Malnutrition type: protein-calorie malnutrition Protein-calorie malnutrition severity: severe Qualified Code(s): E43 - Unspecified severe protein-calorie malnutrition Hospital course: Ms. Vega is a 78 year old female - Time Spent with Patient Total time spent providing and/or coordinating discharge services: - Discharge Medications Home Medications: Amlodipine Besylate 10 mg PO DAILY 05/13/18 [History] Carbidopa/Levodopa [Carbidopa-Levodopa 25-250 Tab] 0.5 tab PO TID 05/13/18 [History] Citalopram [CeleXA] 20 mg PO DAILY 05/13/18 [History] Furosemide [Lasix] 20 mg PO DAILY 05/13/18 [History] Gabapentin [Neurontin] 300 mg PO BID 05/13/18 [History] Gabapentin [Neurontin] 600 mg PO HS 05/13/18 [History] Metformin HCl 1,000 mg PO QAM 05/13/18 [History] Metformin HCl 1,500 mg PO HS 05/13/18 [History] Omeprazole [PriLOSEC] 40 mg PO DAILY 05/13/18 [History] Pravastatin Sodium [Pravachol] 40 mg PO HS 05/13/18 [History] Tolterodine Tartrate [Tolterodine Tartrate ER] 4 mg PO DAILY 05/13/18 [History] Trazodone HCl 200 mg PO HS 05/13/18 [History] rOPINIRole [Requip] 0.5 mg PO HS 05/13/18 [History] raNITIdine HCl [Zantac] 150 mg PO BID 05/13/18 [History] Propranolol LA (24 HR) [Inderal LA] 60 mg PO DAILY 06/30/18 [History] Allergies/Adverse Reactions: Allergy/AdvReac Type Severity Reaction Status Date / Time No Known Allergies Allergy Verified 05/13/18 18:18 Date of admission: 06/29/18 21:42 Primary care physician: Jaz Dominguez MD Consults: 06/30/18 01:45 Consult to Nephrology [CONS] Routine Consulting Provider: Kidney Debi/ERIS/JUDITH/DARNELL Reason for Consult: Severe CODY Call Completed: No 07/01/18 09:11 Consult to Speech Therapy [CONS] Routine Comment: Evaluate, develop and implement POC Reason for Consult: evaluate swallow Time Notified: 09:13 Call Completed: No 07/01/18 09:13 Consult to Physical Therapy [CONS] Routine Comment: Evaluate, develop and implement POC Reason for Consult: weakness Does patient have active BEDREST order?: No Is patient medically & hemodynamically stable?: Yes Patient assessed for mobility or mobilized this visit?: Yes 07/01/18 09:14 Consult to Occupational Therapy [CONS] Routine Comment: Evaluate, develop and implement POC Reason for Consult: weakness Does patient have active BEDREST order?: No Is patient medically & hemodynamically stable?: Yes Patient assessed for mobility or mobilized this visit?: Yes - Constitutional Vitals: Temp Pulse Resp BP Pulse Ox 98.2 F 70 20 131/83 99 07/04/18 07:31 07/04/18 07:31 07/04/18 07:31 07/04/18 07:31 07/04/18 08:50 - Patient Status Condition: Fair - Discharge Instructions Follow Up With: Sinan Garcia DO [Non-Partnered Physician] - 07/08/18 9:15 am Forms: ED Satisfaction Letter
--- NOTE | 2018-07-04 09:17 | Physician Discharge Referral ---
ExtendedCare Referral Info Transfer To: SNF/ECF Provider in Charge after Transfer: PCP Institutional Level of Care: Skilled - Diagnosis (1) Parkinson disease Status: Chronic (2) Diabetes Status: Chronic (3) HTN (hypertension) Status: Chronic (4) CODY (acute kidney injury) Status: Resolved (5) Dehydration Status: Resolved (6) Acute metabolic encephalopathy Status: Resolved (7) Hypophosphatemia Status: Acute (8) Hypokalemia Status: Acute (9) Hypomagnesemia Status: Acute (10) Dementia Status: Chronic (11) Malnutrition Status: Chronic - Transfer Medications Home Medications: Amlodipine Besylate 10 mg PO DAILY 05/13/18 [History] Carbidopa/Levodopa [Carbidopa-Levodopa 25-250 Tab] 0.5 tab PO TID 05/13/18 [History] Citalopram [CeleXA] 20 mg PO DAILY 05/13/18 [History] Furosemide [Lasix] 20 mg PO DAILY 05/13/18 [History] Gabapentin [Neurontin] 300 mg PO BID 05/13/18 [History] Gabapentin [Neurontin] 600 mg PO HS 05/13/18 [History] Metformin HCl 1,000 mg PO QAM 05/13/18 [History] Metformin HCl 1,500 mg PO HS 05/13/18 [History] Omeprazole [PriLOSEC] 40 mg PO DAILY 05/13/18 [History] Pravastatin Sodium [Pravachol] 40 mg PO HS 05/13/18 [History] Tolterodine Tartrate [Tolterodine Tartrate ER] 4 mg PO DAILY 05/13/18 [History] Trazodone HCl 200 mg PO HS 05/13/18 [History] rOPINIRole [Requip] 0.5 mg PO HS 05/13/18 [History] raNITIdine HCl [Zantac] 150 mg PO BID 05/13/18 [History] Propranolol LA (24 HR) [Inderal LA] 60 mg PO DAILY 06/30/18 [History] Allergies/Adverse Reactions: Allergy/AdvReac Type Severity Reaction Status Date / Time No Known Allergies Allergy Verified 05/13/18 18:18 - Respiratory Orders Smoking Cessation: Smoking cessation has been advised. For more information, call the [place] Tobacco Quit Line at 8-736-EDZD-NOW. CERTIFICATION: I certify that the transfer of the above named patient to an Extended Care Facility is necessary for the continuing treatment of the diagnosis listed. The above information is true and accurate reflection of patient's current condition. Confidential - Redisclosure prohibited without a patient's written consent.
[2018-07-04] MEDS: Insulin LISPRO 300 UNITS/3 ML VIAL SQ SCH ×4 (10:20→22:06)
[2018-07-04] MEDS: amLODIPine 5 MG TABLET PO SCH (10:21)
[2018-07-04] MEDS: Propranolol LA (24 HR) 60 MG CAP.SA.24H PO SCH (10:21)
[2018-07-04] MEDS: Furosemide 20 MG TABLET PO SCH (10:22)
[2018-07-04] MEDS: Carbidopa/Levodopa 25/250 TABLET PO SCH ×3 (10:22→22:03)
[2018-07-04] MEDS: Tolterodine LA (24 HR) 2 MG CAP.ER.24H PO SCH (10:22)
[2018-07-04] MEDS ORDERED: Potassium Phosphate 44 MEQ in 0.9 % Sodium Chloride 250 ML IVPB ONE (14:00)
--- NOTE | 2018-07-04 14:03 | Internal Med Progress Note ---
Hospitalist Progress Note - Encounter Date of Encounter: 07/04/18 Time of Encounter: 09:15 - Subjective Interval History: 78 F with PMH of Dementia, Parkinson, HTN,DM Admitted and being managed for encephalopathy likely due to Uremia from CODY and Dehydration CODY resolved No CVA, MRI noted Patient remains confused, not agitated, calm Chart review shows confusion in all her visits-always oriented to self only This mrn, patient is lethargic, responds to name call but falls right back asleep. Vitals are stable, she has no focal neuro deficits and her labs are WNL, she has hypokalemia, hypomag and hypophos, all improved from 07/04 She is also refusing her po medications at this time She had one HR reading of 150, no prior hx of same, no events on tele, will monitor Discharge dispo was for SNF/ECF but will hold due to new lethargy (likely medication induced) as well as pending SNF/ECF placement - Exam Vitals: Temp Pulse Resp BP Pulse Ox 97.3 F L 69 16 118/75 95 07/04/18 11:53 07/04/18 11:53 07/04/18 11:53 07/04/18 11:53 07/04/18 11:53 Exam: Gen - Sleeping but rousable, disoriented, oriented to self only HEENT - NCAT, PERRLA, EOMI, hearing grossly intact, oropharynx benign Heart -S1, S2, RRR, no m/g/r Resp - CTAB,no added sounds GI - Soft, not tender, no palpably enlarged organs, BS present in all quadrants Back: NO CVA tenderness Skin - Warm, dry, no rashes/lesions/ulcers Psych -Appropriate affect Extremities: No pedal edema, normal inspection - Assessment and Plan (1) Parkinson disease Current Visit: Yes Status: Chronic Assessment and Plan: Continue carbidopa/levodopa (2) Diabetes Current Visit: Yes Status: Chronic Assessment and Plan: FS acceptable Continue insulin sliding scale. Monitor fingersticks (3) HTN (hypertension) Current Visit: Yes Status: Chronic Assessment and Plan: Controlled on home meds, continue same (4) CODY (acute kidney injury) Current Visit: Yes Status: Resolved Assessment and Plan: Resolved Work up negative, including renal USS Likely pre-renal from dehydration Continue to monitor Chem (5) Dehydration Current Visit: Yes Status: Resolved Assessment and Plan: As in CODY (6) Acute metabolic encephalopathy Current Visit: Yes Status: Resolved Assessment and Plan: Seems chronic Pt presented with weakness, decreased appetite and altered mental status possibly secondary to severe dehydration vs UTI CODY has resolved, patient remains confused UA negative for UTI Patient remains oriented to self only, baseline is unknown, but chart review shows consistent documentation of self orientation only throughout visitations MRI negative for acute abnormalities Fall and aspiration risk -observe precautions PT, OT and speech eval noted (7) Hypophosphatemia Current Visit: Yes Status: Acute Assessment and Plan: Patient refusing po, replace IV (8) Hypokalemia Current Visit: Yes Status: Acute Assessment and Plan: Replaced, continue to monitor Chem (9) Hypomagnesemia Current Visit: Yes Status: Acute Assessment and Plan: Replaced with 4 g Mag Rpt with a.m chem (10) Dementia Current Visit: Yes Status: Chronic Assessment and Plan: Confused at baseline Continue home meds (11) Malnutrition Current Visit: Yes Status: Chronic Assessment and Plan: Continue supplementation DVT Prophylaxis: Heparin sc - Time Spent with Patient Total time spent is greater than 50% in coordination of care (as documented) at patient's floor/unit and/or counseling patient: Plan of Care Discussed with: nurse Internal Medicine: Result - Labs CBC & Chem 7: 07/04/18 04:36 07/04/18 04:36 Labs: Short CBC 07/04/18 Range/Units 04:36 WBC 7.5 (4.3-11.1) K/mcL Hgb 12.9 (11.5-15.4) g/dL Hct 40.1 (35.3-44.9) % Plt Count 153 (140-400) K/mcL Neutrophils # 4.0 (1.6-8.9) K/mcL BMP 07/04/18 04:36 Sodium 136 Potassium 3.1 L Chloride 102 Carbon Dioxide 27 BUN 7 L Creatinine 0.78 Glucose 218 H Calcium 8.8 Consult Discharge Plan - Plan Referrals: Sinan Garcia DO [Non-Partnered Physician] - 07/08/18 9:15 am (Please follow up as schedule...) (2) Diabetes Qualifiers: Diabetes mellitus type: type 2 Diabetes mellitus doctor osteopathic insulin use: wi thout retirement use Diabetes mellitus complication status: without complication Qualified Code(s): E11.9 - Type 2 diabetes mellitus without complications (3) HTN (hypertension) Qualifiers: Hypertension type: essential hypertension Qualified Code(s): I10 - Essential (primary) hypertension (10) Dementia Qualifiers: Dementia type: unspecified type Dementia behavioral disturbance: without behavioral disturbance Qualified Code(s): F03.90 - Unspecified dementia without behavioral disturbance (11) Malnutrition Qualifiers: Malnutrition type: protein-calorie malnutrition Protein-calorie malnutrition severity: severe Qualified Code(s): E43 - Unspecified severe protein-calorie malnutrition
[2018-07-04] MEDS: rOPINIRole 1 MG TABLET PO SCH (22:04)
[2018-07-05] MEDS: *HR* Heparin 5,000 UNIT/ML VIAL SQ SCH ×3 (05:42→21:30)
[2018-07-05 05:55] LABS: Basophils % 0.3 %; Eosinophils # 0.1 K/mcL (0.0-0.6); Eosinophils % 1.2 %; Hematocrit 36.9 % (35.3-44.9); Hemoglobin 12.2 g/dL (11.5-15.4); Immature Granulocytes % 0.3 % (0-4); Lymphocytes # 1.9 K/mcL (0.6-4.6); Mean Corpuscular HGB Conc 33.1 g/dL (31.6-35.5); Mean Corpuscular Hemoglobin 29.5 pg (28.0-33.3); Mean Corpuscular Volume 89.3 fL (83.0-100.0); Mean Platelet Volume 10.9 fL (9.4-12.4); Monocytes # 0.5 K/mcL (0.0-1.3); Monocytes % 7.4 %; Neutrophils # 4.2 K/mcL (1.6-8.9); Platelet Count 137 K/mcL (140-400); Red Blood Count 4.13 M/mcL (3.82-4.97); Red Cell Distribution Width 15.3 % (11.5-14.5); Segmented Neutrophils % 62.8 %
[2018-07-05 06:12] LABS: BUN/Creatinine Ratio 14 (6-26); Blood Urea Nitrogen 12 mg/dL (8-23); Carbon Dioxide 25 mEq/L (23-29); Chloride 104 mEq/L (98-107); Glucose 283 mg/dL (70-105); Magnesium 1.6 mg/dL (1.6-2.6); Osmolality,Calculated 294 (280-300); Phosphorous 3.7 mg/dL (2.7-4.5); Potassium 3.3 mEq/L (3.5-5.1); Sodium 137 mEq/L (136-145); eGFR For Non-African Americans > 60 (> 60)
[2018-07-05] MEDS: Insulin LISPRO 300 UNITS/3 ML VIAL SQ SCH ×4 (08:59→21:36)
--- NOTE | 2018-07-05 09:34 | Internal Med Progress Note ---
Hospitalist Progress Note - Encounter Date of Encounter: 07/05/18 Time of Encounter: 09:33 - Subjective Interval History: 78 F with PMH of Dementia, Parkinson, HTN,DM Admitted and being managed for encephalopathy likely due to Uremia from CODY and Dehydration CODY resolved No CVA, MRI noted Patient remains confused, not agitated, calm Chart review shows confusion in all her visits-always oriented to self only Attention drawn to patient by RN< who stated that patient was complaining of pain ON evaluation, patient is awake and calm She denies any pain at this time She also reports "I dont want any medications for pain" She is awaiting placement - Exam Vitals: Temp Pulse Resp BP Pulse Ox 98.7 F 96 16 111/69 93 07/05/18 06:54 07/05/18 06:54 07/05/18 06:54 07/05/18 06:54 07/05/18 06:54 Exam: Gen - Awake, not in distress, disoriented, oriented to self only HEENT - NCAT, PERRLA, EOMI, hearing grossly intact, oropharynx benign Heart -S1, S2, RRR, no m/g/r Resp - CTAB,no added sounds GI - Soft, not tender, no palpably enlarged organs, BS present in all quadrants Back: NO CVA tenderness Skin - Warm, dry, no rashes/lesions/ulcers Psych -Appropriate affect Extremities: No pedal edema, normal inspection - Assessment and Plan (1) Parkinson disease Current Visit: Yes Status: Chronic Assessment and Plan: Continue carbidopa/levodopa (2) Diabetes Current Visit: Yes Status: Chronic Assessment and Plan: FS acceptable Continue insulin sliding scale. Monitor fingersticks (3) HTN (hypertension) Current Visit: Yes Status: Chronic Assessment and Plan: Controlled on home meds, continue same (4) CODY (acute kidney injury) Current Visit: Yes Status: Resolved Assessment and Plan: Resolved Work up negative, including renal USS Likely pre-renal from dehydration Continue to monitor Chem (5) Dehydration Current Visit: Yes Status: Resolved Assessment and Plan: As in CODY (6) Acute metabolic encephalopathy Current Visit: Yes Status: Resolved Assessment and Plan: Seems chronic Pt presented with weakness, decreased appetite and altered mental status possibly secondary to severe dehydration vs UTI CODY has resolved, patient remains confused UA negative for UTI Patient remains oriented to self only, baseline is unknown, but chart review shows consistent documentation of self orientation only throughout visitations MRI negative for acute abnormalities Fall and aspiration risk -observe precautions PT, OT and speech eval noted (7) Hypophosphatemia Current Visit: Yes Status: Acute Assessment and Plan: Resolved (8) Hypokalemia Current Visit: Yes Status: Acute Assessment and Plan: Replaced, continue to monitor Chem (9) Hypomagnesemia Current Visit: Yes Status: Resolved Assessment and Plan: resolved (10) Dementia Current Visit: Yes Status: Chronic Assessment and Plan: Confused at baseline Continue home meds (11) Malnutrition Current Visit: Yes Status: Chronic Assessment and Plan: Continue supplementation (12) Barrier to discharge Current Visit: Yes Status: Acute Assessment and Plan: Awaiting placement refusing PT - Time Spent with Patient Total time spent is greater than 50% in coordination of care (as documented) at patient's floor/unit and/or counseling patient: Internal Medicine: Result - Labs CBC & Chem 7: 07/05/18 05:36 07/05/18 05:36 Labs: Short CBC 07/05/18 Range/Units 05:36 WBC 6.7 (4.3-11.1) K/mcL Hgb 12.2 (11.5-15.4) g/dL Hct 36.9 (35.3-44.9) % Plt Count 137 L (140-400) K/mcL Neutrophils # 4.2 (1.6-8.9) K/mcL BMP 07/05/18 05:36 Sodium 137 Potassium 3.3 L Chloride 104 Carbon Dioxide 25 BUN 12 Creatinine 0.86 Glucose 283 H Calcium 9.0 Consult Discharge Plan - Plan Referrals: Sinan Garcia DO [Non-Partnered Physician] - 07/08/18 9:15 am (Please follow up as schedule...) (2) Diabetes Qualifiers: Diabetes mellitus type: type 2 Diabetes mellitus long term care administrator insulin use: without long term care administrator use Diabetes mellitus complication status: without complication Qualified Code(s): E11.9 - Type 2 diabetes mellitus without complications (3) HTN (hypertension) Qualifiers: Hypertension type: essential hypertension Qualified Code(s): I10 - Essential (primary) hypertension (10) Dementia Qualifiers: Dementia type: unspecified type Dementia behavioral disturbance: without behavioral disturbance Qualified Code(s): F03.90 - Unspecified dementia without behavioral disturbance (11) Malnutrition Qualifiers: Malnutrition type: protein-calorie malnutrition Protein-calorie malnutrition severity: severe Qualified Code(s): E43 - Unspecified severe protein-calorie malnutrition
[2018-07-05] MEDS: amLODIPine 5 MG TABLET PO SCH (10:11)
[2018-07-05] MEDS: Furosemide 20 MG TABLET PO SCH (10:11)
[2018-07-05] MEDS: Propranolol LA (24 HR) 60 MG CAP.SA.24H PO SCH (10:11)
[2018-07-05] MEDS: Magnesium Oxide 400 MG TABLET PO SCH (10:11)
[2018-07-05] MEDS: Carbidopa/Levodopa 25/250 TABLET PO SCH ×3 (10:11→21:29)
[2018-07-05] MEDS: Tolterodine LA (24 HR) 2 MG CAP.ER.24H PO SCH (10:11)
[2018-07-05] MEDS: cefTRIAXone 1,000 MG in Water for inj. (sterile) 20 ML 10 ML IVP SCH (10:12)
[2018-07-05] MEDS: rOPINIRole 1 MG TABLET PO SCH (21:29)
[2018-07-05] MEDS: Acetaminophen 325 MG TABLET PO PRN (22:24)
[2018-07-06] MEDS ORDERED: Nystatin POWDER 30 GM BOTTLE TP PRN (05:38)
[2018-07-06] MEDS: *HR* Heparin 5,000 UNIT/ML VIAL SQ SCH ×3 (05:44→21:57)
[2018-07-06 05:56] LABS: BUN/Creatinine Ratio 20 (6-26); Blood Urea Nitrogen 14 mg/dL (8-23); Carbon Dioxide 27 mEq/L (23-29); Chloride 104 mEq/L (98-107); Glucose 270 mg/dL (70-105); Osmolality,Calculated 296 (280-300); Phosphorous 2.4 mg/dL (2.7-4.5); Potassium 3.3 mEq/L (3.5-5.1); Sodium 138 mEq/L (136-145); eGFR For Non-African Americans > 60 (> 60)
[2018-07-06] MEDS ORDERED: Potassium Phosphate 44 MEQ in 0.9 % Sodium Chloride 250 ML IVPB ONE (07:42)
[2018-07-06] MEDS: Carbidopa/Levodopa 25/250 TABLET PO SCH ×3 (08:30→21:54)
[2018-07-06] MEDS: Tolterodine LA (24 HR) 2 MG CAP.ER.24H PO SCH (08:30)
[2018-07-06] MEDS: Magnesium Oxide 400 MG TABLET PO SCH (08:31)
[2018-07-06] MEDS: Propranolol LA (24 HR) 60 MG CAP.SA.24H PO SCH (08:31)
[2018-07-06] MEDS: amLODIPine 5 MG TABLET PO SCH (08:31)
[2018-07-06] MEDS: Furosemide 20 MG TABLET PO SCH (08:31)
[2018-07-06] MEDS: Insulin LISPRO 300 UNITS/3 ML VIAL SQ SCH ×4 (08:32→21:46)
--- NOTE | 2018-07-06 11:03 | Internal Med Progress Note ---
Hospitalist Progress Note - Encounter Date of Encounter: 07/06/18 Time of Encounter: 11:03 - Subjective Interval History: 78 F with PMH of Dementia, Parkinson, HTN,DM Admitted and being managed for encephalopathy likely due to Uremia from CODY and Dehydration CODY resolved No CVA, No acute findings on MRI She is awaiting placement to SNF for deconditioning She was very emotional on evaluation this morning, she is sobbing quietly , denies pain, denies any new symptoms. She is unable to say specifically why she is upset - Exam Vitals: Temp Pulse Resp BP Pulse Ox 98.6 F 84 15 114/72 91 07/06/18 07:14 07/06/18 07:14 07/06/18 07:14 07/06/18 07:14 07/06/18 07:14 Exam: Gen - Awake, not in distress, disoriented, oriented to self only HEENT - NCAT, PERRLA, EOMI, hearing grossly intact, oropharynx benign Heart -S1, S2, RRR, no m/g/r Resp - CTAB,no added sounds GI - Soft, not tender, no palpably enlarged organs, BS present in all quadrants Back: NO CVA tenderness Skin - Warm, dry, no rashes/lesions/ulcers Psych -Depressed, emotional Extremities: No pedal edema, normal inspection - Assessment and Plan (1) Parkinson disease Current Visit: Yes Status: Chronic Assessment and Plan: Continue carbidopa/levodopa (2) Diabetes Current Visit: Yes Status: Chronic Assessment and Plan: FS elevated, patient is refusing SQ insulin Continue insulin sliding scale. Monitor fingersticks (3) HTN (hypertension) Current Visit: Yes Status: Chronic Assessment and Plan: Controlled on home meds, continue same (4) CODY (acute kidney injury) Current Visit: Yes Status: Resolved Assessment and Plan: Resolved Work up negative, including renal USS Likely pre-renal from dehydration Continue to monitor Chem (5) Dehydration Current Visit: Yes Status: Resolved Assessment and Plan: As in CODY (6) Acute metabolic encephalopathy Current Visit: Yes Status: Resolved Assessment and Plan: Seems chronic Pt presented with weakness, decreased appetite and altered mental status possibly secondary to severe dehydration vs UTI CODY has resolved, patient remains confused UA negative for UTI Patient remains oriented to self only, baseline is unknown, but chart review shows consistent documentation of self orientation only throughout visitations MRI negative for acute abnormalities Fall and aspiration risk -observe precautions PT, OT and speech eval noted (7) Hypophosphatemia Current Visit: Yes Status: Resolved Assessment and Plan: Resolved (8) Hypokalemia Current Visit: Yes Status: Acute Assessment and Plan: Replaced, continue to monitor Chem (9) Hypomagnesemia Current Visit: Yes Status: Resolved Assessment and Plan: resolved (10) Dementia Current Visit: Yes Status: Chronic Assessment and Plan: Confused at baseline Continue home meds (11) Malnutrition Current Visit: Yes Status: Chronic Assessment and Plan: Continue supplementation (12) Barrier to discharge Current Visit: Yes Status: Acute Assessment and Plan: Awaiting placement refusing PT DVT Prophylaxis: Heparin sc - Time Spent with Patient Total time spent is greater than 50% in coordination of care (as documented) at patient's floor/unit and/or counseling patient: Plan of Care Discussed with: nurse Internal Medicine: Result - Labs CBC & Chem 7: 07/05/18 05:36 07/06/18 05:26 Labs: BMP 07/06/18 05:26 Sodium 138 Potassium 3.3 L Chloride 104 Carbon Dioxide 27 BUN 14 Creatinine 0.69 Glucose 270 H Calcium 9.0 Consult Discharge Plan - Plan Referrals: Sinan Garcia DO [Non-Partnered Physician] - 07/08/18 9:15 am (Please follow up as schedule...) (2) Diabetes Qualifiers: Diabetes mellitus type: type 2 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 Diabetes mellitus complication status: without complication Qualified Code(s): E11.9 - Type 2 diabetes mellitus without complications (3) HTN (hypertension) Qualifiers: Hypertension type: essential hypertension Qualified Code(s): I10 - Essential (primary) hypertension (10) Dementia Qualifiers: Dementia type: unspecified type Dementia behavioral disturbance: without behavioral disturbance Qualified Code(s): F03.90 - Unspecified dementia without behavioral disturbance (11) Malnutrition Qualifiers: Malnutrition type: protein-calorie malnutrition Protein-calorie malnutrition severity: severe Qualified Code(s): E43 - Unspecified severe protein-calorie malnutrition
[2018-07-06] MEDS: Acetaminophen 325 MG TABLET PO PRN (21:55)
[2018-07-06] MEDS: rOPINIRole 1 MG TABLET PO SCH (21:55)
[2018-07-07] MEDS: *HR* Heparin 5,000 UNIT/ML VIAL SQ SCH ×3 (05:49→20:26)
[2018-07-07 07:08] LABS: BUN/Creatinine Ratio 22 (6-26); Blood Urea Nitrogen 14 mg/dL (8-23); Calcium 9.5 mg/dL (8.6-10.3); Carbon Dioxide 24 mEq/L (23-29); Chloride 105 mEq/L (98-107); Glucose 226 mg/dL (70-105); Magnesium 1.3 mg/dL (1.6-2.6); Osmolality,Calculated 298 (280-300); Phosphorous 3.2 mg/dL (2.7-4.5); Potassium 4.1 mEq/L (3.5-5.1); Sodium 140 mEq/L (136-145); eGFR For Non-African Americans > 60 (> 60)
[2018-07-07] MEDS: amLODIPine 5 MG TABLET PO SCH (08:22)
[2018-07-07] MEDS: Furosemide 20 MG TABLET PO SCH (08:23)
[2018-07-07] MEDS: Propranolol LA (24 HR) 60 MG CAP.SA.24H PO SCH (08:23)
[2018-07-07] MEDS: Tolterodine LA (24 HR) 2 MG CAP.ER.24H PO SCH (08:23)
[2018-07-07] MEDS: Carbidopa/Levodopa 25/250 TABLET PO SCH ×3 (08:23→20:21)
[2018-07-07] MEDS: Insulin LISPRO 300 UNITS/3 ML VIAL SQ SCH ×4 (08:24→21:29)
[2018-07-07] MEDS: Magnesium Oxide 400 MG TABLET PO SCH ×2 (11:34→20:21)
--- NOTE | 2018-07-07 11:36 | Discharge Summary ---
Date of Encounter: 07/07/18 Time of Encounter: 11:36 - Discharge Diagnosis (1) Parkinson disease Status: Chronic (2) Diabetes Status: Chronic Qualifiers: Diabetes mellitus type: type 2 Diabetes mellitus custodial insulin use: without custodial use Diabetes mellitus complication status: without complication Qualified Code(s): E11.9 - Type 2 diabetes mellitus without complications (3) HTN (hypertension) Status: Chronic Qualifiers: Hypertension type: essential hypertension Qualified Code(s): I10 - Essential (primary) hypertension (4) CODY (acute kidney injury) Status: Resolved (5) Dehydration Status: Resolved (6) Acute metabolic encephalopathy Status: Resolved (7) Hypophosphatemia Status: Resolved (8) Hypokalemia Status: Acute (9) Hypomagnesemia Status: Resolved (10) Dementia Status: Chronic Qualifiers: Dementia type: unspecified type Dementia behavioral disturbance: without behavioral disturbance Qualified Code(s): F03.90 - Unspecified dementia without behavioral disturbance (11) Malnutrition Status: Chronic Qualifiers: Malnutrition type: protein-calorie malnutrition Protein-calorie malnutrition severity: severe Qualified Code(s): E43 - Unspecified severe protein-calorie malnutrition (12) Barrier to discharge Status: Acute Hospital course: Ms. Vega is a 78 year old female - Time Spent with Patient Total time spent providing and/or coordinating discharge services: - Discharge Medications Home Medications: Amlodipine Besylate 10 mg PO DAILY 05/13/18 [History] Carbidopa/Levodopa [Carbidopa-Levodopa 25-250 Tab] 0.5 tab PO TID 05/13/18 [History] Citalopram [CeleXA] 20 mg PO DAILY 05/13/18 [History] Furosemide [Lasix] 20 mg PO DAILY 05/13/18 [History] Gabapentin [Neurontin] 300 mg PO BID 05/13/18 [History] Gabapentin [Neurontin] 600 mg PO HS 05/13/18 [History] Metformin HCl 1,000 mg PO QAM 05/13/18 [History] Metformin HCl 1,500 mg PO HS 05/13/18 [History] Omeprazole [PriLOSEC] 40 mg PO DAILY 05/13/18 [History] Pravastatin Sodium [Pravachol] 40 mg PO HS 05/13/18 [History] Tolterodine Tartrate [Tolterodine Tartrate ER] 4 mg PO DAILY 05/13/18 [History] Trazodone HCl 200 mg PO HS 05/13/18 [History] rOPINIRole [Requip] 0.5 mg PO HS 05/13/18 [History] raNITIdine HCl [Zantac] 150 mg PO BID 05/13/18 [History] Propranolol LA (24 HR) [Inderal LA] 60 mg PO DAILY 06/30/18 [History] Allergies/Adverse Reactions: Allergy/AdvReac Type Severity Reaction Status Date / Time No Known Allergies Allergy Verified 05/13/18 18:18 Date of admission: 06/29/18 21:42 Primary care physician: Jaz Dominguez MD Consults: 06/30/18 01:45 Consult to Nephrology [CONS] Routine Consulting Provider: Kidney Debi/ERIS/JUDITH/DARNELL Reason for Consult: Severe CODY Call Completed: No 07/01/18 09:11 Consult to Speech Therapy [CONS] Routine Comment: Evaluate, develop and implement POC Reason for Consult: evaluate swallow Time Notified: 09:13 Call Completed: No 07/01/18 09:13 Consult to Physical Therapy [CONS] Routine Comment: Evaluate, develop and implement POC Reason for Consult: weakness Does patient have active BEDREST order?: No Is patient medically & hemodynamically stable?: Yes Patient assessed for mobility or mobilized this visit?: Yes 07/01/18 09:14 Consult to Occupational Therapy [CONS] Routine Comment: Evaluate, develop and implement POC Reason for Consult: weakness Does patient have active BEDREST order?: No Is patient medically & hemodynamically stable?: Yes Patient assessed for mobility or mobilized this visit?: Yes - Constitutional Vitals: Temp Pulse Resp BP Pulse Ox 97.7 F 92 16 117/75 93 07/07/18 07:02 07/07/18 07:02 07/07/18 07:02 07/07/18 07:02 07/07/18 07:02 - Patient Status Condition: Fair - Discharge Instructions Follow Up With: Sinan Garcia DO [Non-Partnered Physician] - 07/08/18 9:15 am (Please follow up as schedule...) Forms: ED Satisfaction Letter
--- NOTE | 2018-07-07 11:36 | Physician Discharge Referral ---
[facility] [place] [facility] Provider in Charge after Transfer: PCP Institutional Level of Care: Skilled - Diagnosis (1) Parkinson disease Status: Chronic (2) Diabetes Status: Chronic (3) HTN (hypertension) Status: Chronic (4) CODY (acute kidney injury) Status: Resolved (5) Dehydration Status: Resolved (6) Acute metabolic encephalopathy Status: Resolved (7) Hypophosphatemia Status: Resolved (8) Hypokalemia Status: Acute (9) Hypomagnesemia Status: Resolved (10) Dementia Status: Chronic (11) Malnutrition Status: Chronic (12) Barrier to discharge Status: Acute - Transfer Medications Home Medications: Amlodipine Besylate 10 mg PO DAILY 05/13/18 [History] Carbidopa/Levodopa [Carbidopa-Levodopa 25-250 Tab] 0.5 tab PO TID 05/13/18 [History] Citalopram [CeleXA] 20 mg PO DAILY 05/13/18 [History] Furosemide [Lasix] 20 mg PO DAILY 05/13/18 [History] Gabapentin [Neurontin] 300 mg PO BID 05/13/18 [History] Gabapentin [Neurontin] 600 mg PO HS 05/13/18 [History] Metformin HCl 1,000 mg PO QAM 05/13/18 [History] Metformin HCl 1,500 mg PO HS 05/13/18 [History] Omeprazole [PriLOSEC] 40 mg PO DAILY 05/13/18 [History] Pravastatin Sodium [Pravachol] 40 mg PO HS 05/13/18 [History] Tolterodine Tartrate [Tolterodine Tartrate ER] 4 mg PO DAILY 05/13/18 [History] Trazodone HCl 200 mg PO HS 05/13/18 [History] rOPINIRole [Requip] 0.5 mg PO HS 05/13/18 [History] raNITIdine HCl [Zantac] 150 mg PO BID 05/13/18 [History] Propranolol LA (24 HR) [Inderal LA] 60 mg PO DAILY 06/30/18 [History] Allergies/Adverse Reactions: Allergy/AdvReac Type Severity Reaction Status Date / Time No Known Allergies Allergy Verified 05/13/18 18:18 - Respiratory Orders Smoking Cessation: Smoking cessation has been advised. For more information, call the [place] Tobacco Quit Line at 0-636-LSXM-NOW. CERTIFICATION: I certify that the transfer of the above named patient to an Extended Care Facility is necessary for the continuing treatment of the diagnosis listed. The above information is true and accurate reflection of patient's current condition. Confidential - Redisclosure prohibited without a patient's written consent.
--- NOTE | 2018-07-07 14:59 | Internal Med Progress Note ---
Hospitalist Progress Note - Encounter Date of Encounter: 07/07/18 Time of Encounter: 11:00 - Subjective Interval History: 78 F with PMH of Dementia, Parkinson, HTN,DM Admitted and being managed for encephalopathy likely due to Uremia from CODY and Dehydration CODY resolved No CVA, No acute findings on MRI Patient with behavioral problems like refusing meals, crying . Today she is in good spirits, however, on 07/06, she was emotional and crying all day, stating she did not want to go home PTOT has recommended SNF/ECF placement, per SW , this will require a copay of 150 daily that family cannot afford I am waiting decision on whether to discharge home with home health. - Exam Vitals: Temp Pulse Resp BP Pulse Ox 98.6 F 83 16 127/77 95 07/07/18 11:45 07/07/18 11:45 07/07/18 11:45 07/07/18 11:45 07/07/18 11:45 Exam: Gen - Awake, not in distress, disoriented, oriented to self only HEENT - NCAT, PERRLA, EOMI, hearing grossly intact, oropharynx benign Heart -S1, S2, RRR, no m/g/r Resp - CTAB,no added sounds GI - Soft, not tender, no palpably enlarged organs, BS present in all quadrants Back: NO CVA tenderness Skin - Warm, dry, no rashes/lesions/ulcers Psych -Depressed Extremities: No pedal edema, normal inspection - Assessment and Plan (1) Parkinson disease Current Visit: Yes Status: Chronic Assessment and Plan: Continue carbidopa/levodopa (2) Diabetes Current Visit: Yes Status: Chronic Assessment and Plan: FS elevated, patient is refusing SQ insulin Continue insulin sliding scale. Monitor fingersticks (3) HTN (hypertension) Current Visit: Yes Status: Chronic Assessment and Plan: Controlled on home meds, continue same (4) CODY (acute kidney injury) Current Visit: Yes Status: Resolved Assessment and Plan: Resolved Work up negative, including renal USS Likely pre-renal from dehydration Continue to monitor Chem (5) Dehydration Current Visit: Yes Status: Resolved Assessment and Plan: As in CODY (6) Acute metabolic encephalopathy Current Visit: Yes Status: Resolved Assessment and Plan: Seems chronic Pt presented with weakness, decreased appetite and altered mental status possibly secondary to severe dehydration vs UTI CODY has resolved, patient remains confused UA negative for UTI Patient remains oriented to self only, baseline is unknown, but chart review shows consistent documentation of self orientation only throughout visitations MRI negative for acute abnormalities Fall and aspiration risk -observe precautions PT, OT and speech eval noted (7) Hypophosphatemia Current Visit: Yes Status: Resolved Assessment and Plan: Resolved (8) Hypokalemia Current Visit: Yes Status: Acute Assessment and Plan: Replaced, continue to monitor Chem (9) Hypomagnesemia Current Visit: Yes Status: Resolved Assessment and Plan: resolved (10) Dementia Current Visit: Yes Status: Chronic Assessment and Plan: Confused at baseline Continue home meds (11) Malnutrition Current Visit: Yes Status: Chronic Assessment and Plan: Continue supplementation (12) Barrier to discharge Current Visit: Yes Status: Acute Assessment and Plan: Awaiting placement refusing PT DVT Prophylaxis: Heparin sc - Time Spent with Patient Total time spent is greater than 50% in coordination of care (as documented) at patient's floor/unit and/or counseling patient: Internal Medicine: Result - Labs CBC & Chem 7: 07/05/18 05:36 07/07/18 06:15 Labs: BMP 07/07/18 06:15 Sodium 140 Potassium 4.1 Chloride 105 Carbon Dioxide 24 BUN 14 Creatinine 0.63 Glucose 226 H Calcium 9.5 Consult Discharge Plan - Plan Referrals: Sinan Garcia DO [Non-Partnered Physician] - 07/08/18 9:15 am (Please follow up as schedule...) (2) Diabetes Qualifiers: Diabetes mellitus type: type 2 Diabetes mellitus intermediate insulin use: without intermediate use Diabetes mellitus complication status: without complication Qualified Code(s): E11.9 - Type 2 diabetes mellitus without complications (3) HTN (hypertension) Qualifiers: Hypertension type: essential hypertension Qualified Code(s): I10 - Essential (primary) hypertension (10) Dementia Qualifiers: Dementia type: unspecified type Dementia behavioral disturbance: without behavioral disturbance Qualified Code(s): F03.90 - Unspecified dementia without behavioral disturbance (11) Malnutrition Qualifiers: Malnutrition type: protein-calorie malnutrition Protein-calorie malnutrition severity: severe Qualified Code(s): E43 - Unspecified severe protein-calorie malnutrition
--- NOTE | 2018-07-07 15:05 | Event Note ---
Date of Encounter: 07/07/18 Time of Encounter: 15:05 Patient's seen. Renal function is normal. Will sign off. Call with questions.
[2018-07-07] MEDS: *HR* Metformin 500 MG TABLET PO SCH (16:36)
[2018-07-07] MEDS: rOPINIRole 1 MG TABLET PO SCH (20:22)
[2018-07-08] MEDS: *HR* Heparin 5,000 UNIT/ML VIAL SQ SCH (05:09)
[2018-07-08] MEDS: Tolterodine LA (24 HR) 2 MG CAP.ER.24H PO SCH (08:52)
[2018-07-08] MEDS: Furosemide 20 MG TABLET PO SCH (08:52)
[2018-07-08] MEDS: amLODIPine 5 MG TABLET PO SCH (08:52)
[2018-07-08] MEDS: *HR* Metformin 500 MG TABLET PO SCH (08:53)
[2018-07-08] MEDS: Insulin LISPRO 300 UNITS/3 ML VIAL SQ SCH ×2 (08:53→12:06)
[2018-07-08] MEDS: Carbidopa/Levodopa 25/250 TABLET PO SCH (08:53)
[2018-07-08] MEDS: Magnesium Oxide 400 MG TABLET PO SCH (08:53)
[2018-07-08] MEDS: Propranolol LA (24 HR) 60 MG CAP.SA.24H PO SCH (08:53)
[2018-07-08 12:02] VITALS: BP 98/72
--- NOTE | 2018-07-08 13:05 | Discharge Summary ---
- NOTES TO OUTPATIENT PROVIDER Notes to Outpatient Provider: Follow up on potassium and magnesium levels Date of Encounter: 07/08/18 Time of Encounter: 11:00 - Discharge Diagnosis (1) Parkinson disease Priority: Primary Status: Chronic (2) Dementia Priority: Primary Status: Chronic Qualifiers: Dementia type: unspecified type Dementia behavioral disturbance: without behavioral disturbance Qualified Code(s): F03.90 - Unspecified dementia without behavioral disturbance (3) Diabetes Priority: Secondary Status: Chronic Qualifiers: Diabetes mellitus type: type 2 Diabetes mellitus group home insulin use: without sales technician home theater use Diabetes mellitus complication status: without complication Qualified Code(s): E11.9 - Type 2 diabetes mellitus without complications (4) HTN (hypertension) Priority: Secondary Status: Chronic Qualifiers: Hypertension type: essential hypertension Qualified Code(s): I10 - Essential (primary) hypertension (5) CODY (acute kidney injury) Priority: Primary Status: Resolved (6) Dehydration Priority: Primary Status: Resolved (7) Acute metabolic encephalopathy Priority: Primary Status: Resolved (8) Hypokalemia Priority: Secondary Status: Acute (9) Hypomagnesemia Priority: Secondary Status: Resolved (10) Hypophosphatemia Priority: Secondary Status: Resolved (11) Malnutrition Priority: Secondary Status: Chronic Qualifiers: Malnutrition type: protein-calorie malnutrition Protein-calorie malnutrition severity: severe Qualified Code(s): E43 - Unspecified severe protein-calorie malnutrition (12) Barrier to discharge Priority: Secondary Status: Acute Hospital course: Patient is a 78-year-old female with past medical history significant for Parkinsons, dementia and diabetes mellitus who presented to the ER on 06/29/18 due to generalized weakness and altered mental status. Patient was recently admitted to [facility] for Klebsiella UTI with sepsis and was discharged to a SNF on 05/16/18 where she stayed for rehabilitation. According to family members, the patient was doing better to an extent, however the day of admission he developed altered mental status in addition to decreased appetite. In the emergency room she was found to have hyperthermia with a temperature of 95 degrees Fahrenheit, as well as bradycardia, hypotension. She was found to be profoundly hypovolemic with an CODY and a serum creatinine of 4.13, baseline 0.6. Additionally the patient was on a lactic acid 2.8, magnesium 1.2. Blood pressure 84/41. She is admitted to medicine for further workup. During patients hospital stay workup for altered mental status was negative including no acute findings on MRI. Patients mental status gradually improved back to baseline with patients known history of Parkinsons disease with dementia. Patient was also found to have hypomagnesium/hypokalemia and supplementation was given. Patients acute renal failure also improved with hydration. Physical therapy/occupational therapy was consulted with recommendations for intermediate facility placement but family unable to afford to patient will be discharged home with home health and a follow-up appointment care provider. - Time Spent with Patient Total time spent providing and/or coordinating discharge services: Less than 30 minutes - Discharge Medications Prescriptions: Magnesium Oxide [Mag-Ox] 400 mg PO BID 30 Days #60 tablet Potassium Chloride 40 meq PO DAILY #30 tab.er.prt Home Medications: Amlodipine Besylate 10 mg PO DAILY 05/13/18 [History] Carbidopa/Levodopa [Carbidopa-Levodopa 25-250 Tab] 0.5 tab PO TID 05/13/18 [History] Citalopram [CeleXA] 20 mg PO DAILY 05/13/18 [History] Furosemide [Lasix] 20 mg PO DAILY 05/13/18 [History] Gabapentin [Neurontin] 300 mg PO BID 05/13/18 [History] Gabapentin [Neurontin] 600 mg PO HS 05/13/18 [History] Metformin HCl 1,000 mg PO QAM 05/13/18 [History] Metformin HCl 1,500 mg PO HS 05/13/18 [History] Omeprazole [PriLOSEC] 40 mg PO DAILY 05/13/18 [History] Pravastatin Sodium [Pravachol] 40 mg PO HS 05/13/18 [History] Tolterodine Tartrate [Tolterodine Tartrate ER] 4 mg PO DAILY 05/13/18 [History] Trazodone HCl 200 mg PO HS 05/13/18 [History] rOPINIRole [Requip] 0.5 mg PO HS 05/13/18 [History] raNITIdine HCl [Zantac] 150 mg PO BID 05/13/18 [History] Propranolol LA (24 HR) [Inderal LA] 60 mg PO DAILY 06/30/18 [History] Magnesium Oxide [Mag-Ox] 400 mg PO BID 30 Days #60 tablet 07/08/18 [Rx] Potassium Chloride 40 meq PO DAILY #30 tab.er.prt 07/08/18 [Rx] Allergies/Adverse Reactions: Allergy/AdvReac Type Severity Reaction Status Date / Time No Known Allergies Allergy Verified 05/13/18 18:18 Date of admission: 06/29/18 21:42 Primary care physician: Jaz Dominguez MD Consults: 06/30/18 01:45 Consult to Nephrology [CONS] Routine Consulting Provider: Kidney Debi/ERIS/JUDITH/DARNELL Reason for Consult: Severe CODY Call Completed: No 07/01/18 09:11 Consult to Speech Therapy [CONS] Routine Comment: Evaluate, develop and implement POC Reason for Consult: evaluate swallow Time Notified: 09:13 Call Completed: No 07/01/18 09:13 Consult to Physical Therapy [CONS] Routine Comment: Evaluate, develop and implement POC Reason for Consult: weakness Does patient have active BEDREST order?: No Is patient medically & hemodynamically stable?: Yes Patient assessed for mobility or mobilized this visit?: Yes 07/01/18 09:14 Consult to Occupational Therapy [CONS] Routine Comment: Evaluate, develop and implement POC Reason for Consult: weakness Does patient have active BEDREST order?: No Is patient medically & hemodynamically stable?: Yes Patient assessed for mobility or mobilized this visit?: Yes - Constitutional Vitals: Temp Pulse Resp BP Pulse Ox 98.6 F 97 20 98/72 98 07/08/18 11:51 07/08/18 11:51 07/08/18 11:51 07/08/18 11:51 07/08/18 11:51 General appearance: Present: no acute distress Exam: As above - Neurological Exam Neurological exam: Present: alert. Absent: altered - Patient Status Disposition: Home Health Service Condition: Fair - Discharge Instructions Instructions: Potassium Chloride (By mouth), Magnesium (By mouth), Parkinson's Disease (GEN), Diabetes Mellitus Type 2 in Adults (GEN), Altered Mental Status (GEN) Follow Up With: Sinan Garcia DO [Non-Partnered Physician] - 07/23/18 10:15 am () Forms: ED Satisfaction Letter
--- NOTE | 2018-07-08 13:06 | Physician Discharge Referral ---
Home Health/Hosp Referral Info Transfer to: Home Health - Diagnosis (1) Parkinson disease Status: Chronic (2) Dementia Status: Chronic (3) Diabetes Status: Chronic (4) HTN (hypertension) Status: Chronic (5) CODY (acute kidney injury) Status: Resolved (6) Dehydration Status: Resolved (7) Acute metabolic encephalopathy Status: Resolved (8) Hypokalemia Status: Acute (9) Hypomagnesemia Status: Resolved (10) Hypophosphatemia Status: Resolved (11) Malnutrition Status: Chronic (12) Barrier to discharge Status: Acute - Respiratory Orders Smoking Cessation: Smoking cessation has been advised. For more information, call the [place] Tobacco Quit Line at 8-732-DLIC-NOW. - Services Needed Following services are medically necessary services: Nursing, Home Health Aide, Physical Therapy, Occupational Therapy - Transfer Medications Prescriptions: Magnesium Oxide [Mag-Ox] 400 mg PO BID 30 Days #60 tablet Potassium Chloride 40 meq PO DAILY #30 tab.er.prt Home Medications: Amlodipine Besylate 10 mg PO DAILY 05/13/18 [History] Carbidopa/Levodopa [Carbidopa-Levodopa 25-250 Tab] 0.5 tab PO TID 05/13/18 [History] Citalopram [CeleXA] 20 mg PO DAILY 05/13/18 [History] Furosemide [Lasix] 20 mg PO DAILY 05/13/18 [History] Gabapentin [Neurontin] 300 mg PO BID 05/13/18 [History] Gabapentin [Neurontin] 600 mg PO HS 05/13/18 [History] Metformin HCl 1,000 mg PO QAM 05/13/18 [History] Metformin HCl 1,500 mg PO HS 05/13/18 [History] Omeprazole [PriLOSEC] 40 mg PO DAILY 05/13/18 [History] Pravastatin Sodium [Pravachol] 40 mg PO HS 05/13/18 [History] Tolterodine Tartrate [Tolterodine Tartrate ER] 4 mg PO DAILY 05/13/18 [History] Trazodone HCl 200 mg PO HS 05/13/18 [History] rOPINIRole [Requip] 0.5 mg PO HS 05/13/18 [History] raNITIdine HCl [Zantac] 150 mg PO BID 05/13/18 [History] Propranolol LA (24 HR) [Inderal LA] 60 mg PO DAILY 06/30/18 [History] Magnesium Oxide [Mag-Ox] 400 mg PO BID 30 Days #60 tablet 07/08/18 [Rx] Potassium Chloride 40 meq PO DAILY #30 tab.er.prt 07/08/18 [Rx] Allergies/Adverse Reactions: Allergy/AdvReac Type Severity Reaction Status Date / Time No Known Allergies Allergy Verified 05/13/18 18:18 Certification: Further, I certify that my clinical findings support that this patient is homebound (i.e. absences from home require considerable and taxing effort and are for medical reasons or zoroastrian services or infrequently or short duration when for other reasons) because: Homebound Reason: Patient requires assistance of a person or device to safely leave home Attestation: My signature below is to certify that this patient is under my care and that I, or nurse practitioner, or a physician's account management assistant working with me, has a [id number] encounter with this patient.
== END 2018-07-08 14:50 | disposition home health service (06) | DRG 682 ==
LOC: 2ANU 17:04 → EMEROOARM 17:04 → 2NNU 20:32 → SUATTDRO 21:42 → 2NNU 06-30 00:29 → 2ANU 07-01 14:55
PROVIDERS: ADMIT Internal Medicine; ATTEND Hospitalist